=== PATIENT | female | born 1955 | race Caucasian/White ===

== ENCOUNTER 2020-05-23 12:06 | Outpatient (REF) | payer OTHER, SELFPAY ==
--- NOTE | ~2020-05-23 | XR_ITS ---
EXAMINATION: XR KNEE, LEFT XR KNEE, RIGHT CLINICAL INFORMATION: Knee pain COMPARISON: None TECHNIQUE: 4 views of each knee, including weightbearing AP and lateral views. FINDINGS: Left knee: No fracture or subluxation. Compartmental joint spaces are maintained. No joint effusion. The soft tissues are unremarkable. Right knee: No fracture or subluxation. Compartmental joint spaces are maintained. No joint effusion. The soft tissues are unremarkable. XR/XR knee RT 4V IMPRESSION: Unremarkable appearance of both knees.
--- NOTE | ~2020-05-23 | XR_ITS ---
EXAMINATION: XR KNEE, LEFT XR KNEE, RIGHT CLINICAL INFORMATION: Knee pain COMPARISON: None TECHNIQUE: 4 views of each knee, including weightbearing AP and lateral views. FINDINGS: Left knee: No fracture or subluxation. Compartmental joint spaces are maintained. No joint effusion. The soft tissues are unremarkable. Right knee: No fracture or subluxation. Compartmental joint spaces are maintained. No joint effusion. The soft tissues are unremarkable. XR/XR knee LT 4V IMPRESSION: Unremarkable appearance of both knees.
[2020-05-23 14:45] LABS: Alanine Aminotransferase 17 U/L (0-31); Albumin Level 4.4 g/dL (3.5-5.0); Alkaline Phosphatase 56 U/L (39-117); Anion Gap 12 (12-20); Aspartate Amino Transferase 20 U/L (5-31); Bilirubin Total 0.9 mg/dL (0.0-1.0); Blood Urea Nitrogen 14 mg/dL (9-16); Carbon Dioxide 29 mmol/L (22-29); Chloride 106 mmol/L (96-108); Cholesterol 253 mg/dL; Estimated Glomerular Filt Rate > 60; Glucose Fasting 84 mg/dL (60-99); HDL Cholesterol 101 mg/dL; LDL Cholesterol Calculated 130 mg/dl; Potassium 4.2 mmol/L (3.3-5.1); Sodium 143 mmol/L (135-145); Total Protein 6.9 g/dL (6.5-8.0); Triglycerides 114 mg/dL
[2020-05-23 15:04] LABS: TSH reflex Free T4 0.63 uIU/mL (0.32-4.0); Vitamin D 25-OH Total 5.3 ng/mL (>30)
== END 2020-05-23 12:07 | disposition home or self-care (01) ==
LOC: HO.HMGCX 12:06
PROVIDERS: PCP Nurse Practitioner Family; Visit Provider Nurse Practitioner Family
DX: Z00.00 Encounter for general adult medical examination without abnormal findings (principal); M25.561 Pain in right knee; M25.562 Pain in left knee; Z78.0 Asymptomatic menopausal state
CPT/HCPCS: 36415; 73564; 80053; 80061; 82306; 84443

== ENCOUNTER 2020-07-01 15:06 | Outpatient (REF) | payer OTHER, SELFPAY ==
[2020-07-01 16:40] LABS: Hematocrit 39.7 % (37-47); Hemoglobin 13.1 g/dl (12.0-16.0); Mean Corpuscular Hemoglobin 32.1 pg (27.0-33.0); Mean Corpuscular Volume 97.3 fL (80-98); Mean Platelet Volume 10.1 fL (9.4-12.3); Platelet Count 180 X10*3/uL (160-400); Red Blood Count 4.08 X10*6/uL (4.20-5.50); Red Cell Distribution Width 12.6 % (11.0-16.0); White Blood Count 5.4 X10*3/uL (4.8-10.8)
== END 2020-07-01 15:07 | disposition home or self-care (01) ==
LOC: HO.LAB 15:06
PROVIDERS: PCP Nurse Practitioner Family; Referring Provider Nurse Practitioner Family; Visit Provider Nurse Practitioner Family
DX: R19.7 Diarrhea, unspecified (principal)
CPT/HCPCS: 36415; 85027

== ENCOUNTER 2020-07-24 15:54 | Outpatient (REF) | payer OTHER, SELFPAY ==
--- NOTE | ~2020-07-24 | MM_ITS ---
EXAMINATION: MM SCREENING DIGITAL BREAST TOMOSYNTHESIS, BILATERAL CLINICAL INFORMATION: Screening. Asymptomatic. The lifetime risk of breast cancer based on the Tyrer-Cuzick Model is 5%. COMPARISON: Outside mammography: 08/01/2013, 07/26/2012, 07/21/2012 ([place]) TECHNIQUE: Digital breast tomosynthesis is performed in both the craniocaudal and mediolateral oblique views along with computer-aided detection (CAD). Synthesized 2D images are generated from the tomosynthesis. FINDINGS: The breasts are heterogeneously dense, which may obscure small masses (ACR BI-RADS breast composition Category c). Breast tissue composition borders on average fibroglandular. There are no significant masses, abnormal calcifications, or other abnormalities. The skin contours are smooth. No significant changes from outside exam. MM/MM tomosynthesis screening BI IMPRESSION: No mammographic evidence of malignancy. ASSESSMENT: BI-RADS 1: Negative RECOMMENDATION: Routine annual mammography screening. This patient's information was entered into a reminder system with a target due date for their next mammogram.
== END 2020-07-24 15:55 | disposition home or self-care (01) ==
LOC: HO.MAMMO 15:54
PROVIDERS: Visit Provider Nurse Practitioner Family
DX: Z12.31 Encounter for screening mammogram for malignant neoplasm of breast (principal)
CPT/HCPCS: 77063; 77067

== ENCOUNTER → 2020-07-29 14:48 | Outpatient (REF) | payer OTHER, SELFPAY ==
--- NOTE | 2020-07-29 14:51 | CA_ITS ---
Transthoracic Echocardiogram Patient (Last, First, Middle): Maile Snow S Gender: Female Date of : 1955 Age: 65 Procedure Date: 07/29/2020 Procedure Type: Transthoracic Echocardiogram Location: OP Height: 162.56 cm Weight: 62.6 kg BSA: 1.67 m2 Heart Rate: bpm BP: 170 / 50 mmHg Actuarial Consultant: DALE/PRADEEP Referring MD: Jorge Sanchez [facility] Central Office Mechanic: Ayaan Ramos MD Symptoms: R01.1 - Cardiac murmur, unspecified Study Quality: Good ECG Rhythm: Sinus Conclusions: - 1. Normal LV systolic function with grade 1 diastolic dysfunction 2. Mild calcification aortic valve with increased gradient across aortic valve without significant aortic stenosis 3. Normal RV systolic pressure 4. No pericardial effusion Findings Left Ventricle Normal left ventricular size, thickness, and systolic function. The visually estimated ejection fraction is between 65-70%. Spectral Doppler is indicative of an impaired relaxation filling pattern. E/E prime ratio is <8, consistent with normal filling pressures. Evidence suggests grade I (mild) diastolic dysfunction. Right Ventricle Normal right ventricular cavity size and systolic function. Atria Both atria are normal in size. There is a mobile atrial septum noted. There is no evidence of interatrial shunt. Aortic Valve There is mild calcification of the aortic valve. There is no aortic valve stenosis. The peak aortic gradient is 20 mmHg.The mean gradient is 8 mmHg. There is no aortic valve regurgitation. Mitral Valve Normal mitral valve structure and function. There is trace mitral valve regurgitation. There is no mitral valve stenosis. Pulmonic Valve The pulmonic valve was not well visualized. Tricuspid Valve Normal tricuspid valve structure. There is trace tricuspid valve regurgitation. The right ventricular systolic pressure is normal. The right ventricular systolic pressure is 28 mmHg. Normal right atrial pressure. There is no evidence of pulmonary hypertension. Great Vessels All visible segments of the aorta are normal in size. The pulmonary artery was not well visualized. Venous The inferior vena cava is normal in size and collapses greater than 50% with inspiration. Pericardium/Pleural There is no evidence of pericardial effusion. Prior Study Comparison No prior study available for comparison. Measurements 2D Linear Measurements IVSd: 0.81 0.6-0.9/0.6-1.0 cm LVIDd: 4.09 3.9-5.3/4.2-5.9 cm LVIDd Index: 2.45 2.4-3.2/2.2-3.1 cm/m2 LVIDs: 2.56 2.0-3.6 cm LVPWd: 0.83 0.7-1.1 cm Ao Root: 3.00 2.1-3.5 cm LA Diam: 3.00 2.7-3.8/3.0-4.0 cm LAIDs Index: 1.80 1.5-2.3 cm/m2 LV Mass: 123.68 67-162/88-224 g LV Mass Index: 74.06 43-95/49-115 g/m2 LVOT Diam: 1.90 3.0+(-)1.3 cm 2D Systolic Function EF 4C: 69.40 >55% EF 2C: 62.00 >55% EF BiP: 67.10 >55% Mitral Valve MV Pk E: 0.96 MV PK A: 1.05 MV Decel Time: 282.00 E/A: 0.90 E'Lateral: 10.80 E'Medial: 7.18 E/E' Med: 13.30 E/E' Lat: 8.80 PHT: 82.00 MVA PHT: 2.68 Decel Wilcox: 3.39 Aortic Valve AoV Pk Philippe: 2.26 AoV Mn Philippe: 1.28 AoV VTI: 0.45 AoV Pk Grad: 20.00 Aov Mn Grad: 8.00 MICKY Cont.VTI: 2.28 LVOT LVOT Pk Philippe: 1.73 LVOT Mn Philippe: 1.10 LVOT VTI: 0.36 LVOT Pk Grad: 12.00 LVOT Mn Grad: 6.00 LVOT Diam: 1.90 LVOT Area: 2.84 Diastolic Function MV Pk E: 0.96 MV Pk A: 1.05 E/A: 0.90 E'Medial: 7.18 E/E' Med: 13.30 E' Laterial: 10.80 E/E' Lat: 8.80 Tricuspid Valve TR Pk Philippe: 2.52 TR Pk Grad: 25.00 RA Press: 3.00 RVSP: 28.00 Great Vessels Aorta Ao Root-2D: 3.00 2.0-3.7 cm Ao Asc: 3.40 2.1-3.4 cm Ao Arch: 3.70 Updated in Other Vendor System with Status of Final Ayaan Ramos MD electronically signed on 07/29/2020 5:32:57 PM with status of Final
== END ==
LOC: HO.CARD 14:48
PROVIDERS: Visit Provider Nurse Practitioner Family
DX: R00.1 Bradycardia, unspecified (principal)
CPT/HCPCS: 93306

== ENCOUNTER → 2020-08-01 09:11 | Outpatient (BNVA) | payer OTHER, SELFPAY | PROVIDERS: PCP Nurse Practitioner Family; Visit Provider Internal Medicine Cardiovascular Disease | DX: R07.9 Chest pain, unspecified (principal); R01.1 Cardiac murmur, unspecified; I10 Essential (primary) hypertension; Z79.899 Other long term (current) drug therapy | CPT/HCPCS: 93005 ==

== ENCOUNTER → 2020-08-08 09:16 | Outpatient (REF) | payer OTHER, SELFPAY ==
--- NOTE | 2020-08-08 09:21 | CA_ITS ---
Acquisition Time: 2020-08-08 09:55:42 Total Exercise Time: 00:09:00 Test Indications: Chest Pain Medications: Protocol: ABDIRAHMAN Max HR: 134 BPM 85% of Pred: 157 BPM Max BP: 162/086 mmHG Max Work Load: 10.1 METS Exercise stress test with exercise 9 min of Abdirahman protocol, without anginal symptoms, with isolated PACs, with normotensive response to exercise, without EKG changes meeting criteria for ischemia. Test reviewed with Dr Eddy. Referred By: Eloy Villanueva Overread By: DEE ROSSI
== END ==
LOC: HO.CARD 09:16
PROVIDERS: Visit Provider Internal Medicine Cardiovascular Disease
DX: I10 Essential (primary) hypertension (principal)
CPT/HCPCS: 93017

== ENCOUNTER → 2020-10-02 13:36 | Outpatient (BNVA) | payer OTHER, SELFPAY | PROVIDERS: PCP Nurse Practitioner Family; Referring Provider Nurse Practitioner Family; Visit Provider Nurse Practitioner Family ==

== ENCOUNTER 2021-03-03 12:44 | Outpatient (REF) | payer OTHER, SELFPAY ==
[2021-03-03 13:15] LABS: Binax Now Covid-19 Ag Negative (Negative)
[2021-03-03 13:16] LABS: Binax Internal Control QC Valid
== END 2021-03-03 12:45 | disposition home or self-care (01) ==
LOC: HO.HMGCLDS 12:44
PROVIDERS: Visit Provider Internal Medicine
DX: Z20.822 Contact with and (suspected) exposure to COVID-19 (principal); J06.9 Acute upper respiratory infection, unspecified
CPT/HCPCS: 36415

== ENCOUNTER 2021-03-31 10:53 | Day surgery (SDC) | payer OTHER, SELFPAY ==
--- NOTE | 2021-03-28 12:18 | HO.ANESPROP2 ---
Documented by User: Sonam Hi NP 03/28/21 12:20 HPI - Anesthesia Eval Consult details Narrative: 66yo F for Colonoscopy PMFSH Active Problems Active Problems: All Active Problems (Updated 03/25/21 @ 13:33 by Gisela Little RN) Stress due to illness of family member (Acute) Screening for colon cancer (Acute) Screening for breast cancer (Acute) Physical exam (Acute) Postmenopausal (Acute) Bilateral knee pain (Acute) Systolic murmur (Acute) Dyslipidemia (Acute) Chest pain (Acute) Essential hypertension (Acute) Palpitations (Acute) Preop cardiovascular exam (Acute) Upper respiratory tract infection (Acute) Past Medical History Medical History (Updated 03/31/21 @ 11:07 by Lana Christy RN) Graves disease HTN (hypertension) Hyperlipidemia Murmur Palpitations Vitamin D deficiency Family History Family History Father Hypertension Diabetes Mother COPD (chronic obstructive pulmonary disease) Surgical History Surgical History (Updated 03/31/21 @ 11:06 by Lana Christy RN) History of hernia surgery Hx of abdominal surgery Social History Social History Household Members: Spouse Alcohol intake: current Alcohol intake frequency: a few times a month Patient Tobacco Use Status: Never used Tobacco Use of substances other than those prescribed or required for medical reasons: No Are you DNR?: No Advance Directives: No Advance Directives Information Provided: Yes Current occupational status: unemployed Meds Allergies Allergy/AdvReac Type Severity Reaction Status Date / Time No Known Allergies Allergy Verified 03/31/21 11:07 Home Medications Medication Instructions Recorded Confirmed Last Taken Type methylcellulose (laxative) 500 mg 500 mg PO DAILY PRN tab 03/03/21 03/25/21 Unknown History tablet (Citrucel) Exam Exam Date and Time: March 28, 2021 1218 Narrative Narrative: ECHO 07/2020 Conclusions: - 1. Normal LV systolic function with grade 1 diastolic? dysfunction? 2. Mild calcification aortic valve with increased gradient across aortic valve without significant aortic stenosis ? 3. Normal RV systolic pressure ? 4. No pericardial effusion ? ? ? EKG 07/2020 Normal sinus rhythm 78 beats per minute, normal ECG, QTC 449 milliseconds Stress 07/2020 Protocol: ACE ? Max HR: 134 BPM? 85% of? Pred: 157 BPM Max BP: 162/086 mmHG Max Work Load: 10.1 METS ? Exercise stress test with exercise 9 min of Ace protocol, without anginal ?symptoms, with isolated PACs, with normotensive response to exercise, without ?EKG changes meeting criteria for ischemia. Test reviewed with Dr Eddy. Assessment and Plan Assessment Anesthesia Assessment: Chart Reviewed Documented by User: Ila Hawkins MD 03/31/21 11:18 [facility] Past Medical History Medical History (Updated 03/31/21 @ 11:07 by Lana Christy RN) Graves disease HTN (hypertension) Hyperlipidemia Murmur Palpitations Vitamin D deficiency Family History Family History Father Hypertension Diabetes Mother COPD (chronic obstructive pulmonary disease) Family history of problems with anesthesia: No Surgical History Surgical History (Updated 03/31/21 @ 11:06 by Lana Christy RN) History of hernia surgery Hx of abdominal surgery History of Problems with Anesthesia: No Social History Social History Household Members: Spouse Alcohol intake: current Alcohol intake frequency: a few times a month Patient Tobacco Use Status: Never used Tobacco Use of substances other than those prescribed or required for medical reasons: No Are you DNR?: No Advance Directives: No Advance Directives Information Provided: Yes Current occupational status: unemployed Meds Allergies Allergy/AdvReac Type Severity Reaction Status Date / Time No Known Allergies Allergy Verified 03/31/21 11:07 Home Medications Medication Instructions Recorded Confirmed Last Taken Type methylcellulose (laxative) 500 mg 500 mg PO DAILY PRN tab 01/10/22 02/01/22 Unknown History tablet (Citrucel) Exam Airway Mallampati Class: II TM Dist: >3cm Neck ROM: Full Heart: rrr Lungs: cta Assessment and Plan Assessment Anesthesia Assessment: Anesthesia Plan Discussed and Chart Reviewed Final Anesthetic Review Family History of Problems with Anesthesia: No History of Problems with Anesthesia: No NPO: Yes ASA Class: II Final Preanesthetic Review: No Changes in Pt Med Stat, Meds/Allgs Chart Reviewed and Consent Obtained/Reviewed Patient Risk: Intermediate Procedure Risk: Intermediate Anesthetic Plan Anesthetic Plan: MAC: Disposition: Standard PACU
[2021-03-31 11:08] VITALS: BMI 23.0
--- NOTE | 2021-03-31 11:14 | MHC.SHP ---
Pre-Procedural Eval Section A Date of Service: 03/31/21 Section B Chief Complaint: diarrhea Relevant Family History (Specify if Yes): No Relevant Social History: None Present Medications: see Short Stay Collaborative assessment Medical History: Significant History (Graves disease HTN (hypertension) Hyperlipidemia Murmur Palpitations) History of Previous Operations: Relevant previous surgery/procedure and date(s) (History of hernia surgery Hx of abdominal surgery) Allergies: Allergies Allergy/AdvReac Type Severity Reaction Status Date / Time No Known Allergies Allergy Verified 03/31/21 11:07 Review of Systems Sugical H&P ROS: Negative: Constitution, Cardiovascular, Respiratory, Neurological, Psychiatric, Hem-Onc, Allergic/Immunologic, Gastrointestinal, Genitourinary, Musculoskeletal, Integumentary, Endocrine and Eyes/Ears/Nose/Throat Exam Surgical H&P Exam: Normal: HEENT, Normal: Heart, Normal: Lungs, Normal: Extremities, Normal: Abdomen, Normal: Skin and Normal: Neurological Plan Diagnosis/Plan: Unchanged I have reviewed the history and physical and performed a pertinent physical examination on my patient. No changes have occurred unless specified.
[2021-03-31 11:19] VITALS: BP 142/75; PULSE 60; RESP 16; TEMP 36.6; O2SAT 99
[2021-03-31] MEDS: Lactated Ringers 1,000 ML 100 ML IVCONT (11:36)
--- NOTE | 2021-03-31 12:03 | P.BOP_ITS ---
Brief Operative Note Date of Service: 03/31/21 Pre-op diagnosis: chronic diarrhea Post-op diagnosis: same Procedure: see op note Surgeon: Lio Celestin MD Anesthesia: MAC Was an Gang Investigator used for this Procedure?: No Estimated blood loss (mL): 0 Condition: stable Disposition: PACU
--- NOTE | 2021-03-31 12:03 | W.PM.OPN ---
Operative Note Operative Note Date of Service: 03/31/21 Narrative: Operative Information Procedure Description: Colonoscopy COLONOSCOPY Instrument: Olympus variable stiffness pediatric scope 190L Colonoscopy Monitoring: Vital signs and clinical assessment, continuous EKG monitoring, Pulse oximetry, Carbon Dioxide monitoring and blood pressure monitoring were done throughout the procedure. Colon withdrawal time was 19 minutes. Procedure: The patient was placed in the left lateral decubitis position and pre-procedure medications were administered. After a digital rectal examination of the ano-rectum, the video colonoscope was inserted into the rectum and advanced through the colon to the cecum/TI. The colonoscope was slowly withdrawn in a retrograde panoramic fashion and the colon mucosa was carefully examined including a retroflexed view of the rectum. Findings and interventions are described below. Procedure Difficulty: easy Findings: Terminal Ileum-normal, bx taken random colon bx taken to r/o microscopic colitis Cecum: 12-14 mm sessile polyp raised with orise and then removed with cold snare, x 1 clip applied for hemostasis Ascending Colon: x 2 sessile polyps, one removed with forceps measured 7-8 mm and the other similar size removed with cold snare Transverse Colon -normal Descending Colon:normal Sigmoid Colon: 8-10 mm sessile polyp removed with cold snare Rectum: Retroflexion with small internal hemorrhoids, grade I Anorectum - normal Colon preparation: [place] Bowel Preparation Scale Right colon; 2 Transverse colon: 2 Left colon; 2 (0 = Unprepared colon segment with mucosa not seen due to solid stool that cannot be cleared. 1 = Portion of mucosa of the colon segment seen, but other areas of the colon segment not well seen due to staining, residual stool and/or opaque liquid. 2 = Minor amount of residual staining, small fragments of stool and/or opaque liquid, but mucosa of colon segment seen well. 3 = Entire mucosa of colon segment seen well with no residual staining, small fragments of stool or opaque liquid) Impression and Post Procedure Diagnosis: polyps internal hemorrhoids Plan: High fiber diet leaflet Avoid straining at stool, epsom salts and sitz bath, anusol supps or cream Repeat Colonoscopy in 2-3 years or earlier if clinically indicated Above findings were reviewed with the patient and relevant handouts were provided if indicated.
[2021-03-31 12:58] VITALS: BP 112/71; PULSE 62; RESP 16; TEMP 36.7; O2SAT 99
[2021-03-31 13:13] VITALS: BP 147/65; PULSE 54; RESP 18; TEMP 37; O2SAT 97
== END 2021-03-31 13:47 ==
LOC: HO.SSS 10:53
PROVIDERS: PCP Internal Medicine; Visit Provider Internal Medicine Gastroenterology
PROC: 0DJD8ZZ Inspection of Lower Intestinal Tract, Via Natural or Artificial Opening Endoscopic (ICD-10-PCS; CPT 45378; principal; 2021-03-31 12:00)
DX: Z12.11 Encounter for screening for malignant neoplasm of colon (principal); R19.7 Diarrhea, unspecified; D12.0 Benign neoplasm of cecum; D12.2 Benign neoplasm of ascending colon; D12.5 Benign neoplasm of sigmoid colon; K64.0 First degree hemorrhoids; E05.00 Thyrotoxicosis with diffuse goiter without thyrotoxic crisis or storm; I10 Essential (primary) hypertension; R01.1 Cardiac murmur, unspecified; R00.2 Palpitations; E55.9 Vitamin D deficiency, unspecified; Z79.899 Other long term (current) drug therapy
CPT/HCPCS: 45385; 45380; 45381; 88305

== ENCOUNTER → 2021-04-03 13:24 | Outpatient (BNVA) | payer OTHER, SELFPAY | PROVIDERS: PCP Nurse Practitioner Family; Referring Provider Nurse Practitioner Family; Visit Provider Internal Medicine Cardiovascular Disease ==

== ENCOUNTER → 2021-04-24 14:52 | Outpatient (BNVA) | payer OTHER, SELFPAY | PROVIDERS: PCP Nurse Practitioner Family; Referring Provider Nurse Practitioner Family; Visit Provider Internal Medicine Cardiovascular Disease ==

== ENCOUNTER → 2021-04-25 15:03 | Outpatient (BNVA) | payer OTHER, SELFPAY | PROVIDERS: PCP Nurse Practitioner Family; Visit Provider Nurse Practitioner Family ==

== ENCOUNTER 2021-06-27 08:56 | Outpatient (REF) | payer OTHER, SELFPAY ==
--- NOTE | ~2021-06-27 | MM_ITS ---
EXAMINATION: BONE DENSITOMETRY CLINICAL INDICATION: Asymptomatic menopausal state. COMPARISON: None (current study represents initial baseline exam). TECHNIQUE: Using a Fighters DXA System (software version: 13.1) manufactured by [employer], dual-energy x-ray absorptiometry was performed of the lumbar spine and left hip. The images are of good technical quality. Summary results are attached. FINDINGS: AP SPINE L1-L4: BMD 1.154 g/cm2, Z-score 1.5, T-score -0.2, normal. LEFT FEMUR, NECK: BMD 0.628 g/cm2, Z-score -1.4, T-score -2.9, osteoporosis. LEFT FEMUR, TOTAL: BMD 0.733 g/cm2, Z-score -0.9, T-score -2.2, osteopenia. IDENTIFIED RISK FACTORS: Secondary osteoporosis, low calcium intake, menopause. HISTORY OF FRACTURE: None listed. MEDICATIONS: Vitamin D. MM/XR DEXA axial skeleton IMPRESSION: 1. DIAGNOSIS: Osteoporosis based on the lowest T-score value of -2.9 in the femoral neck applying World Health Organization criteria. 2. 10-YEAR FRACTURE RISK PREDICTION, FRAX: According to the guidelines, FRAX calculation should only be performed on patients in the osteopenia bone density category. Therefore, FRAX was not performed on this patient. 3. Treatment Recommendations: NOF guidelines recommend consideration for treatment in postmenopausal women and men age 50 and older presenting with the following: -A hip or vertebral (clinical or morphometric) fracture. -T-score less than or equal to -2.5 at the femoral neck or spine after appropriate evaluation to exclude secondary causes. -Low bone mass at the hip or spine and a 10-year fracture probability by FRAX of greater than or equal to 3% for hip fracture or greater than or equal to 20% for major osteoporotic fracture based on the [place] adapted WHO algorithm. 4. Other Recommendations: All treatment decisions require clinical judgment and consideration of individual patient factors, including patient preferences, comorbidities, previous drug use, risk factors not captured in the FRAX model (e.g. frailty, falls, vitamin D deficiency, increased bone turnover, interval significant decline in bone density) and possible under or overestimation of fracture risk by FRAX. Additional medical evaluation for secondary cause of low bone mineral density may be appropriate. FUTURE SCAN RECOMMENDATION: People with diagnosed cases of osteoporosis or at high risk for fracture should have regular bone mineral density tests. For patients eligible for Medicare, routine testing is allowed once every 2 years. The testing frequency can be increased to one year for patients who have rapidly progressing disease, those who are receiving or discontinuing medical therapy to restore bone mass, or have additional risk factors.
== END 2021-06-27 08:57 | disposition home or self-care (01) ==
LOC: HO.MAMMO 08:56
PROVIDERS: PCP Nurse Practitioner Family; Visit Provider Nurse Practitioner Family
DX: Z13.820 Encounter for screening for osteoporosis (principal); Z78.0 Asymptomatic menopausal state
CPT/HCPCS: 77080

== ENCOUNTER → 2021-07-07 14:29 | Outpatient (BNVA) | payer OTHER, SELFPAY | PROVIDERS: PCP Nurse Practitioner Family; Referring Provider Nurse Practitioner Family; Visit Provider Internal Medicine Cardiovascular Disease | DX: I10 Essential (primary) hypertension (principal) | CPT/HCPCS: 93005 ==

== ENCOUNTER 2021-08-04 08:46 | Outpatient (REF) | payer OTHER, SELFPAY ==
--- NOTE | ~2021-08-04 | MM_ITS ---
EXAMINATION: MM SCREENING DIGITAL BREAST TOMOSYNTHESIS, BILATERAL CLINICAL INFORMATION: Screening. Asymptomatic. The lifetime risk of breast cancer based on the Tyrer-Cuzick Model is 5%. COMPARISON: Mammography: 07/24/2020; outside mammography 08/01/2013 ([place]) TECHNIQUE: Digital breast tomosynthesis is performed in both the craniocaudal and mediolateral oblique views along with computer-aided detection (CAD). Synthesized 2D images are generated from the tomosynthesis. FINDINGS: There are scattered areas of fibroglandular density (ACR BI-RADS breast composition Category b). Breast tissue composition borders on heterogeneously dense on the right. Parenchymal pattern is similar to prior studies. There is no developing density or architectural abnormality, significant mass, or abnormal calcifications. The axilla and skin contours are unremarkable. MM/MM tomosynthesis screening BI IMPRESSION: No mammographic evidence of malignancy. ASSESSMENT: BI-RADS 1: Negative RECOMMENDATION: Routine annual mammography screening. This patient's information was entered into a reminder system with a target due date for their next mammogram.
== END 2021-08-04 08:47 | disposition home or self-care (01) ==
LOC: HO.MAMMO 08:46
PROVIDERS: PCP Nurse Practitioner Family; Visit Provider Nurse Practitioner Family
DX: Z12.31 Encounter for screening mammogram for malignant neoplasm of breast (principal)
CPT/HCPCS: 77063; 77067

== ENCOUNTER 2021-10-31 15:03 | Outpatient (REF) | payer OTHER, SELFPAY ==
[2021-10-31 16:23] LABS: TSH reflex Free T4 0.51 uIU/mL (0.32-4.0)
[2021-10-31 16:36] LABS: Folate 5.7 ng/mL (> or = 4.0); Vitamin B12 171 pg/mL (200-900)
[2021-11-06 11:52] LABS: Vitamin D 25-OH, D2 <4 ng/mL; Vitamin D 25-OH, D3 39 ng/mL; Vitamin D 25-OH, Total 39 ng/mL (30-100)
== END 2021-10-31 15:04 | disposition home or self-care (01) ==
LOC: HO.LAB 15:03
PROVIDERS: PCP Nurse Practitioner Family; Visit Provider Nurse Practitioner Family
DX: E05.00 Thyrotoxicosis with diffuse goiter without thyrotoxic crisis or storm (principal); E55.9 Vitamin D deficiency, unspecified; R19.7 Diarrhea, unspecified
CPT/HCPCS: 36415; 82306; 82607; 82746; 84443

== ENCOUNTER 2021-11-14 10:43 | Outpatient (REF) | payer OTHER, SELFPAY ==
[2021-11-14 13:55] LABS: Alanine Aminotransferase 15 U/L (0-31); Albumin Level 4.6 g/dL (3.5-5.0); Alkaline Phosphatase 55 U/L (39-117); Anion Gap 18 (12-20); Aspartate Amino Transferase 23 U/L (5-31); Bilirubin Total 0.9 mg/dL (0.0-1.0); Blood Urea Nitrogen 16 mg/dL (9-16); Calcium 10.2 mg/dL (8.4-10.2); Carbon Dioxide 27 mmol/L (22-29); Chloride 101 mmol/L (96-108); Estimated Glomerular Filt Rate 60; Glucose Random 83 mg/dL (60-115); Phosphorus 4.2 mg/dL (2.7-4.5); Potassium 4.7 mmol/L (3.3-5.1); Sodium 141 mmol/L (135-145); Total Protein 7.2 g/dL (6.5-8.0)
[2021-11-14 14:19] LABS: Free T4 (Free Thyroxine) 1.06 ng/dL (0.71-1.85); Thyroid Stimulating Hormone 0.49 uIU/mL (0.32-4.0); Vitamin D 25-OH Total 34.6 ng/mL (>30)
[2021-11-15 23:32] LABS: Triiodothyronine T3 Total 85 ng/dL (76-181)
[2021-11-17 17:26] LABS: PTHI 43 pg/mL (16-77)
[2021-11-17 21:07] LABS: Prot Elec - Albumin 4.5 g/dL (3.8-4.8); Prot Elec - Alpha1 0.3 g/dL (0.2-0.3); Prot Elec - Alpha2 0.6 g/dL (0.5-0.9); Prot Elec - Beta 1 0.5 g/dL (0.4-0.6); Prot Elec - Beta 2 0.3 g/dL (0.2-0.5); Prot Elec - Gamma 0.8 g/dL (0.8-1.7); Prot Elec - Total Protein 6.9 g/dL (6.1-8.1)
[2021-11-18 17:36] LABS: Calcium, Ionized 5.1 mg/dL (4.8-5.6)
[2021-11-18 23:33] LABS: Alkaline Phosphatase Bone 8.7 mcg/L (5.6-29.0)
[2021-11-19 14:37] LABS: Thyroid Stimulating Immunoglob <89 % baseline (<140)
[2021-11-19 16:42] LABS: Thyrotropin Receptor Antibody <1.00 IU/L (<=2.00)
== END 2021-11-14 10:44 | disposition home or self-care (01) ==
LOC: HO.10HDL 10:43
PROVIDERS: Visit Provider Internal Medicine
DX: M81.0 Age-related osteoporosis without current pathological fracture (principal); E55.9 Vitamin D deficiency, unspecified; Z86.39 Personal history of other endocrine, nutritional and metabolic disease
CPT/HCPCS: 36415; 80053; 82306; 82330; 83520; 83970; 84075; 84100; 84165; 84439; 84443; 84445; 84480

== ENCOUNTER 2021-12-05 09:59 | Outpatient (REF) | payer OTHER, SELFPAY ==
--- NOTE | ~2021-12-05 | US_ITS ---
EXAMINATION: US THYROID CLINICAL INFORMATION: Personal history of other endocrine, nutritional and metabolic disorder. COMPARISON: None TECHNIQUE: Linear transducer grayscale and color Doppler examination with attention to the region of the thyroid. FINDINGS: SIZE: Measurements of the thyroid lobes and nodules are given in sagittal, anteroposterior and transverse dimensions respectively. Right Thyroid Lobe: 4.6 x 1.3 x 1.8 cm, volume 5.6 mL. Parenchyma: The gland echotexture is homogeneous. Thyroid vascularity is increased. Left Thyroid Lobe: 5.1 x 1.1 x 1.7 cm, volume 5.0 mL. Parenchyma: The gland echotexture is homogeneous. Thyroid vascularity is increased. Isthmus: 0.6 cm in maximum AP dimension. Estimated total number of nodules greater than or equal to 1 cm: 0. 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 Location: Right midpole. Size: 0.3 x 0.4 x 0.2 cm, volume 0.01 mL. Nodule characteristics: Composition: Spongiform (0). ACR TI-RADS total points: 0 ACR TI-RADS category: 1 2. Location: Left lower pole. Size: 0.6 x 0.4 x 0.6 cm, volume 0.07 mL. Nodule characteristics: Composition: Spongiform (0). ACR TI-RADS total points: 0 ACR TI-RADS category: 1 3. Location: Left upper pole. Size: 0.9 x 0.6 x 0.8 cm, volume 0.25 mL. Nodule characteristics: Composition: Solid/almost completely solid (2). Echogenicity: Isoechoic (1). Shape: Not taller than wide (0). Margins: Ill-defined (0). Echogenic Foci: None (0). ACR TI-RADS total points: 3 ACR TI-RADS category: 3 NODES: No lymphadenopathy is seen in the tissue surrounding the thyroid gland. US/US thyroid IMPRESSION: Small subcentimeter nodules nonsuspicious.. Mild hypervascular nonenlarged thyroid lobes ACR TI-RADS RECOMMENDATION REFERENCE: Ultrasound-guided fine-needle aspiration, followup ultrasound, no further follow up. * TR1 (0 point) and TR 2 (2 points): No FNA or follow up. * TR3 (3 points): FNA if more than or equal to 2.5 cm in maximum dimension, followup ultrasound in 1, 3 and 5 years if 1.5 to 2.4 cm in maximum dimension. * TR4 (4-6 points): FNA if more than or equal to 1.5 cm in maximum dimension, followup ultrasound in 1, 2, 3 and 5 years if 1 to 1.4 cm in maximum dimension. * TR5 (more than or equal to 7 points): FNA if more than or equal to 1 cm in maximum dimension, followup ultrasound every year for 5 years if 0.5 to 0.9 cm in maximum dimension. * TR3, TR4 or TR5 nodules that are below the size threshold for followup receive no follow up.
== END 2021-12-05 10:00 | disposition home or self-care (01) ==
LOC: HO.HMGCX 09:59
PROVIDERS: PCP Nurse Practitioner Family; Visit Provider Internal Medicine
DX: Z86.39 Personal history of other endocrine, nutritional and metabolic disease (principal)
CPT/HCPCS: 76536

== ENCOUNTER 2022-01-29 11:52 | Outpatient (REF) | payer OTHER, SELFPAY ==
[2022-01-29 15:00] LABS: Creatinine, mg/dL 98.58
[2022-01-29 18:12] LABS: Creatinine, 24Hr Urine 0.7 G/Day (1.0-2.0); Total Volume 24 Hour Urine 675 mL
[2022-01-31 17:33] LABS: Calcium, 24 Hr Urine 34 mg/24 h; Calcium/Creatinine Ratio 53 mg/g creat (30-275); Creatinine 24Hr Urine 0.63 g/24 h (0.50-2.15)
[2022-02-08 04:13] LABS: N-Telopeptide 36 (see note); NTXCreaRU 50 mg/dL (20-275)
== END 2022-01-29 11:53 | disposition home or self-care (01) ==
LOC: HO.10HDLNP 11:52
PROVIDERS: Visit Provider Internal Medicine
DX: M81.0 Age-related osteoporosis without current pathological fracture (principal)
CPT/HCPCS: 82340; 82523; 82570

== ENCOUNTER → 2022-07-13 14:26 | Outpatient (BNVA) | payer MEDICARE, SELFPAY | PROVIDERS: PCP Nurse Practitioner Family; Referring Provider Nurse Practitioner Family; Visit Provider Internal Medicine Cardiovascular Disease | DX: R00.2 Palpitations (principal); I10 Essential (primary) hypertension; Z79.899 Other long term (current) drug therapy | CPT/HCPCS: 93005; 99212 ==

== ENCOUNTER 2022-07-27 13:47 | Outpatient (REF) | payer MEDICARE, SELFPAY ==
[2022-07-27 16:09] LABS: Alanine Aminotransferase 12 U/L (0-31); Albumin Level 4.3 g/dL (3.5-5.0); Alkaline Phosphatase 59 U/L (39-117); Anion Gap 16 (12-20); Aspartate Amino Transferase 23 U/L (5-31); Bilirubin Total 0.6 mg/dL (0.0-1.0); Blood Urea Nitrogen 11 mg/dL (9-16); Calcium 9.8 mg/dL (8.4-10.2); Carbon Dioxide 22 mmol/L (22-29); Chloride 109 mmol/L (96-108); Estimated Glomerular Filt Rate > 60; Glucose Random 79 mg/dL (60-115); Phosphorus 3.2 mg/dL (2.7-4.5); Potassium 4.5 mmol/L (3.3-5.1); Sodium 142 mmol/L (135-145); Total Protein 6.8 g/dL (6.5-8.0)
[2022-07-27 16:27] LABS: Free T4 (Free Thyroxine) 1.11 ng/dL (0.71-1.85); Thyroid Stimulating Hormone 0.51 uIU/mL (0.32-4.0); Vitamin D 25-OH Total 36.2 ng/mL (>30)
[2022-07-28 18:28] LABS: Calcium (PTHI) 9.9 mg/dL (8.6-10.4); PTHI 36 pg/mL (16-77)
== END 2022-07-27 13:48 | disposition home or self-care (01) ==
LOC: HO.LAB 13:47
PROVIDERS: PCP Nurse Practitioner Family; Visit Provider Internal Medicine
DX: M81.0 Age-related osteoporosis without current pathological fracture (principal); E55.9 Vitamin D deficiency, unspecified; Z86.39 Personal history of other endocrine, nutritional and metabolic disease
CPT/HCPCS: 36415; 80053; 82306; 83970; 84100; 84439; 84443; 99212

== ENCOUNTER 2022-08-07 15:33 | Outpatient (REF) | payer MEDICARE, SELFPAY ==
[2022-08-07 15:42] LABS: Appearance Urine Clear; Color Urine Yellow; Glucose Urine UA Negative (Negative); Leukocyte Esterase Urine Moderate (2+) (Negative); Nitrite Urine Negative (Negative); PH 5.5 (5.0-9.0); UMIC TRIGGER UACC YES; Urine Blood Small (1+) (Negative); Urine Ketones Negative (Negative); Urine Protein Negative (Neg-Trace)
[2022-08-07 15:54] LABS: Bacteria Urine 1+ (None Seen); Hyaline Casts Urine 0-2 /LPF (0-2); UACC Culture Trigger YES
== END 2022-08-07 15:34 | disposition home or self-care (01) ==
LOC: HO.LNP 15:33
PROVIDERS: Visit Provider Nurse Practitioner Family
DX: Z00.00 Encounter for general adult medical examination without abnormal findings (principal); R82.90 Unspecified abnormal findings in urine
CPT/HCPCS: 81001; 87086

== ENCOUNTER 2022-08-10 08:11 | Outpatient (REF) | payer MEDICARE, SELFPAY ==
--- NOTE | ~2022-08-10 | MM_ITS ---
EXAMINATION: MM SCREENING DIGITAL BREAST TOMOSYNTHESIS, BILATERAL CLINICAL INFORMATION: Screening. Asymptomatic. The lifetime risk of breast cancer based on the Tyrer-Cuzick Model is 5%. COMPARISON: Mammography: 08/04/2021, 07/24/2020, outside mammography 08/01/2013 ([employer]). TECHNIQUE: Digital breast tomosynthesis is performed in both the craniocaudal and mediolateral oblique views along with computer-aided detection (CAD). Synthesized 2D images are generated from the tomosynthesis. Additional exaggerated left CC view is provided. FINDINGS: The breasts are heterogeneously dense, which may obscure small masses (ACR BI-RADS breast composition Category c). Breast tissue composition borders on average fibroglandular. Parenchymal pattern is similar to prior studies. There are no significant masses, abnormal calcifications, or other abnormalities. No developing density or architectural abnormality. The axilla and skin contours are unremarkable. MM/MM tomosynthesis screening BI IMPRESSION: No mammographic evidence of malignancy. ASSESSMENT: BI-RADS 1: Negative RECOMMENDATION: Routine annual mammography screening. This patient's information was entered into a reminder system with a target due date for their next mammogram.
== END 2022-08-10 08:12 | disposition home or self-care (01) ==
LOC: HO.MAMMO 08:11
PROVIDERS: PCP Nurse Practitioner Family; Visit Provider Nurse Practitioner Family
DX: Z12.31 Encounter for screening mammogram for malignant neoplasm of breast (principal)
CPT/HCPCS: 77063; 77067

== ENCOUNTER → 2022-10-15 14:16 | Outpatient (BNVA) | payer MEDICARE, SELFPAY | PROVIDERS: PCP Nurse Practitioner Family; Visit Provider Internal Medicine ==

== ENCOUNTER 2022-11-13 11:57 | Outpatient (AMB) | payer MEDICARE, SELFPAY ==
--- NOTE | 2022-11-13 12:16 | MHC.OFFVIS ---
Intake Vital Signs 11/13/22 12:18 Height 5 ft 4 in Weight 126 lb BMI 21.6 BP 148/71 H Blood Pressure Location Lt brachial Position Sitting Pulse 66 Intake Visit Reasons: 1 year follow up Intake Note: Patient yearly follow up for Diarrhea. Patient cc: diarrhea on and off, denies any other GI concern or issues. Second Cook And Baker Required: No Accompanied by: Self / Same As Patient Allergies No Known Allergies Allergy (Verified 11/19/22 10:10) HPI 1 year follow up HPI Details LAST VISIT Diarrhea Occasional diarrhea. Patient was encouraged to start fiber therapy. This will help her bulk the stools. Patient was also encouraged to stick to FODMAP diet recommendations. IBS (irritable bowel syndrome) Occasional postprandial abdominal cramping. Patient will loose stools and then occasionally he will be constipated. I will send a script for Citrucel. FODMAP diet discussed with patient. Graves disease Patient reports that she was diagnosed with Graves disease 10 years ago requesting to going see an electrician locomotive or somebody who can check her thyroid. I do not see any ultrasound available. Thyroid levels only TSH available and it was normal. No other studies done. Will refer to endocrinology Plan Orders Orders Vitamin B12 and Folate 10/31/21 R19.7 TSH reflex Free T4 10/31/21 E05.00, R19.7 Vitamin D 25-OH (D2 and D3) 10/31/21 E55.9 Referrals Endocrinology Referral E05.00 Medications New methylcellulose (laxative) (Citrucel) take it with full glass of water 500 mg PO DAILY 90 tabs 2RF K59.00 calcium carbonate (Calcium) 600 mg PO DAILY 90 tabs 2RF TODAY'S VISIT: Patient is here today for follow-up. Patient reports since last time I have seen her she has been doing better. Patient reports of occasional postprandial abdominal bloating and loose stools. Patient denies any abdominal pain or cramping. Occasional dyspepsia without dysphagia odynophagia. Patient started taking Fosamax weekly for osteoporosis. Seen by Endocrinology for Graves disease and after osteoporosis. Patient denies any melena, hematochezia, unintentional weight loss or ribbon like stools. Denies any nausea vomiting. Reports to be feeling well otherwise. Patient has colonoscopy in March of 2021 that showed tubulovillous adenoma and recommendation was made for patient to return in 2-3 years. [facility] Medical History (Updated 11/19/22 @ 10:48 by CAROLINE Rivera) Vitamin D deficiency Osteoporosis History of Graves' disease Tubulovillous adenoma Vitamin D deficiency Palpitations Hyperlipidemia Murmur HTN (hypertension) Graves disease Surgical History Hx of colonoscopy History of hernia surgery Hx of abdominal surgery Family History Father Hypertension Diabetes Mother COPD (chronic obstructive pulmonary disease) Social History Household Members: Spouse Housing: [facility] Alcohol intake: current Alcohol intake frequency: a few times a week Alcohol type: beer Patient Tobacco Use Status: Never used Tobacco e-Cigarette/Vaping Use: Never Used Second Hand Smoke Exposure: No service: No Current occupational status: retired Cognitive needs: No Hearing needs: No Vision needs: Yes Review of Systems Const Denies weight gain and Denies weight loss ENT Reports no additional complaints, Denies dysphagia and Denies odynophagia Card Reports no additional complaints Resp Reports no additional complaints GI Denies abdominal pain, Denies belching, Denies melena, Denies bloating, Denies dysphagia, Denies excessive flatus, Denies dyspepsia, Denies heartburn, Denies diarrhea, Reports loose stools, Denies nausea, Denies odynophagia and Denies vomiting Reports no additional complaints Musc Reports no additional complaints Neuro Reports no additional complaints Psych Reports no additional complaints Endo Reports no additional complaints Physical Exam Vital Signs: Last Vital Signs Pulse 66 11/13/22 12:18 BP 148/71 H 11/13/22 12:18 BMI result Body Mass Index 21.6 Const General: healthy appearing, no acute distress and well developed Nutritional Appearance: well nourished Orientation/consciousness: patient oriented x3 HEENT Head: Yes normal to inspection, Yes normocephalic and Yes atraumatic Face and sinus: Yes normal facial exam Mouth: Normal oral and palatal mucosa present Throat: Yes posterior oropharynx normal, Yes tonsils normal and Yes uvula midline Eyes General: appearance normal, both eyes and all related structures Neck Neck: Yes normal visual inspection, Yes full ROM and Yes trachea midline Thyroid: Thyroid normal Resp Effort & Inspection: normal respiratory effort, able to speak in complete sentences, no tracheal deviation and symmetric chest movement Auscultation: clear to auscultation bilaterally Cardio Rate: regular rate Heart sounds: S1 normal heart sound present and S2 normal heart sound present GI Inspection: Yes normal to inspection and No distended Palpation (GI): Soft to palpation, not firm, nontender and No hepatosplenomegaly present Auscultation: normal bowel sounds General: Yes no CVA tenderness Back/Spine/Pelvis Back: no CVA tenderness Skin General skin exam: elasticity normal, turgor normal and dry skin Neuro General: patient oriented x3 Psych Appearance: grossly normal Mental Status: mental status grossly normal Speech and movement: Normal speech and movement present Assessment & Plan Assessment & Plan (1) Diarrhea: Code(s): R19.7 - Diarrhea, unspecified Qualifiers: Diarrhea type: functional diarrhea Qualified Code(s): K59.1 - Functional diarrhea (2) IBS (irritable bowel syndrome): Code(s): K58.9 - Irritable bowel syndrome without diarrhea Qualifiers: Irritable bowel syndrome type: with both diarrhea and constipation Qualified Code(s): K58.2 - Mixed irritable bowel syndrome Plan Patient can continue taking over the come her fiber. Patient was also encouraged fluid intake. Avoiding dietary triggers and like that snacking. I will see patient will on year to discuss colonoscopy. Patient will call our office sooner if she will have a GI concerning symptoms. She is agreeable to this plan and verbalizes understanding of instructions. She was given the opportunity to ask questions and all questions answered. Thank you for allowing me to participate in her care Coding Level of Care Code Est Pt Level 3 (39528) Diagnoses Functional diarrhea K59.1 Diarrhea type: functional diarrhea Irritable bowel syndrome with both constipation and diarrhea K58.2 Irritable bowel syndrome type: with both diarrhea and constipation Time Spent (min) 25 Comment 15 minutes spent with patient and additional 10 minutes spent reviewing her records
[2022-11-13 12:18] VITALS: BP 148/71; PULSE 66; BMI 21.6
== END 2022-11-13 12:49 | disposition home or self-care (01) ==
PROVIDERS: PCP Nurse Practitioner Family; Visit Provider Nurse Practitioner Family
DX: K59.1 Functional diarrhea (principal); K58.2 Mixed irritable bowel syndrome
CPT/HCPCS: 99213

== ENCOUNTER → 2022-11-13 11:57 | Outpatient (BNVA) | payer MEDICARE, SELFPAY | PROVIDERS: PCP Nurse Practitioner Family; Visit Provider Nurse Practitioner Family | DX: K58.2 Mixed irritable bowel syndrome (principal); K59.1 Functional diarrhea | CPT/HCPCS: 99212 ==

== ENCOUNTER 2022-11-19 09:52 | Outpatient (AMB) | payer MEDICARE, SELFPAY ==
--- NOTE | 2022-11-19 10:08 | A.OFFPC_ITS ---
Vital Signs 11/19/22 10:09 Height 5 ft 3 in Weight 129 lb 4 oz BMI 22.9 BP 140/78 H Blood Pressure Location Lt brachial Position Sitting Pulse 57 Pulse Source Pulse Oximeter Pulse Oximetry (%) 100 Oxygen Delivery Method Room Air Intake Visit Reasons: 3 Month follow up HTN Allergies No Known Allergies Allergy (Verified 11/19/22 10:10) Tobacco use date assessed: 11/19/22 Fall risk assessment: 1 Fall in past year Last assessed Fall Risk: 11/19/22 Dental Screening Dental Screen Date: 11/19/22 Did you have a dental visit in the last 12 months?: Yes Did you have a dental problem in the last 6 months where you did not have access to dental care?: No Was dental information given to patient?: Patient has dentist HPI 3 Month follow up HTN HPI Details HTN: forgets her HTN med intermittently. Patient denies any current shortness of breath, chest pain, headache, dizziness. She will start to take her blood pressure more at home and call me if she sustains above 140/90. 2. Patient reports intermittent pins and needles starting at her right upper ext remity going down to her thumb. She does report some popping/clicking in her cervical neck, with minimal discomfort. We will start with an x-ray [facility] Medical History (Updated 11/19/22 @ 10:48 by CAROLINE Rivera) Vitamin D deficiency Osteoporosis History of Graves' disease Tubulovillous adenoma Vitamin D deficiency Palpitations Hyperlipidemia Murmur HTN (hypertension) Graves disease Surgical History Hx of colonoscopy History of hernia surgery Hx of abdominal surgery Family History Father Hypertension Diabetes Mother COPD (chronic obstructive pulmonary disease) Social History Household Members: Spouse Housing: Condominium Alcohol intake: current Alcohol intake frequency: a few times a week Alcohol type: beer Patient Tobacco Use Status: Never used Tobacco e-Cigarette/Vaping Use: Never Used Second Hand Smoke Exposure: No service: No Current occupational status: retired Cognitive needs: No Hearing needs: No Vision needs: Yes Questionnaire Thrive Questionnaire Date Thrive assessed: 05/14/22 GLORIA-7 AMB Questionnaire GLORIA-7 Date GLORIA - 7 assessed: 05/14/22 Source: Developed by Drs. Roscoe Hussein, Collette Alex, Gary Alcantara and colleagues, with an educational haley from [employer]. Physical exam (Primary Care) Vital Signs: Last Vital Signs Pulse 57 11/19/22 10:09 BP 140/78 H 11/19/22 10:09 Pulse Ox 100 11/19/22 10:09 Oxygen Delivery Method Room Air 11/19/22 10:09 BMI result Body Mass Index 22.9 Tobacco/Smoking Status: Tobacco use Status Tobacco use date assessed 11/19/22 11/19/22 10:12 Patient Tobacco Use Status Never used Tobacco 11/19/22 10:12 e-Cigarette/Vaping Use Never Used 11/19/22 10:12 Thrive Assessment: Date of Thrive Assessment Date Thrive assessed 05/14/22 11/19/22 10:12 Const General: cooperative, healthy appearing, comfortable and no acute distress Resp Effort & Inspection: normal respiratory effort Auscultation: clear to auscultation bilaterally Cardio Rate: regular rate Rhythm: regular rhythm Heart sounds: S1 normal heart sound present, S2 normal heart sound present and Murmur heart sound present systolic Back/Spine/Pelvis Other: With turning head side to side, chin tucks, chin raises, no pain noted to cervical spine or radiculopathy. Negative Spurling's. Psych Appearance: grossly normal Mental Status: mental status grossly normal Speech and movement: Normal speech and movement present Affect: normal affect Attitude: cooperative Thought process: Normal thought process present Thought content: Normal thought content present Insight: Good insight present (Psych) Judgement: Good judgement present (Psych) Assessment and Plan Assessment & Plan (1) Cervical neck pain with evidence of disc disease: Code(s): M50.90 - Cervical disc disorder, unspecified, unspecified cervical region Plan: stretching, continue to monitor symptoms, keep me informed. (2) HTN (hypertension): Code(s): I10 - Essential (primary) hypertension Plan: continue amlodipine, call me if sustaining 140/90 or above Orders: Orders XR cervical spine 2V Today M50.90 - Cervical disc disorder, unspecified, unspecified cervical region Coding Level of Care Code Est Pt Level 3 (80559) Diagnoses Cervical neck pain with evidence of disc disease M50.90 HTN (hypertension) I10
[2022-11-19 10:09] VITALS: BP 140/78; PULSE 57; O2SAT 100; BMI 22.9
== END 2022-11-19 10:56 | disposition home or self-care (01) ==
PROVIDERS: PCP Nurse Practitioner Family; Visit Provider Nurse Practitioner Family
DX: M50.90 Cervical disc disorder, unspecified, unspecified cervical region (principal); I10 Essential (primary) hypertension
CPT/HCPCS: 99213

== ENCOUNTER 2022-11-27 12:02 | Outpatient (REF) | payer MEDICARE, SELFPAY ==
--- NOTE | ~2022-11-27 | XR_ITS ---
EXAMINATION: XR cervical spine 2V CLINICAL INFORMATION: Cervical disc disorder COMPARISON: None TECHNIQUE: 3 views of the cervical spine were obtained. FINDINGS: The cervical spine is visualized to the level of C7-T1 on the lateral view. Reversal of usual cervical spine lordosis with minimal retrolisthesis of C5 on C6. Vertebral body heights are maintained. Lateral masses of C1 are well aligned on C2. Visualized portion of the dens is intact. Moderate degenerative disc disease at C3-C4, C4-C5, and C5-C6, manifested by loss of disc space height, anterior disc osteophyte complexes and facet arthropathy. No prevertebral soft tissue swelling. XR/XR cervical spine 2V IMPRESSION: 1. Moderate spondylosis of the cervical spine, as above detailed, with reversal of the usual cervical spine lordosis and minimal retrolisthesis of C5 on C6.
== END 2022-11-27 12:03 | disposition home or self-care (01) ==
LOC: HO.HMGCX 12:02
PROVIDERS: PCP Nurse Practitioner Family; Visit Provider Nurse Practitioner Family
DX: Z00.00 Encounter for general adult medical examination without abnormal findings (principal); M50.90 Cervical disc disorder, unspecified, unspecified cervical region; E55.9 Vitamin D deficiency, unspecified; E78.5 Hyperlipidemia, unspecified; I10 Essential (primary) hypertension
CPT/HCPCS: 36415; 72040; 80053; 80061; 82306; 84443; 85025

== ENCOUNTER 2023-05-20 15:30 | Outpatient (AMB) | payer MEDICARE, SELFPAY ==
[2023-05-20 15:33] VITALS: BP 136/80; PULSE 80; O2SAT 97; BMI 23.9
--- NOTE | 2023-05-20 15:33 | MHC.PC.OV ---
Vital Signs 05/20/23 15:33 Height 5 ft 3 in Weight 135 lb BMI 23.9 BP 136/80 Blood Pressure Location Lt brachial Position Sitting Pulse 80 Pulse Source Pulse Oximeter Pulse Oximetry (%) 97 Oxygen Delivery Method Room Air Intake Visit Reasons: Annual PE Intake Note: pt is here for annual exam Hose Finisher Required: No Accompanied by: Spouse Allergies No Known Allergies Allergy (Verified 05/20/23 15:39) Medication List - Last Reconciled 05/20/23 by CAROLINE Rivera alendronate (Fosamax) 70 mg PO QWEEK 4 weeks amlodipine 5 mg PO DAILY 90 days ascorbic acid (vitamin C) mg PO atorvastatin 20 mg PO BEDTIME calcium carbonate (Calcium) 600 mg PO DAILY cholecalciferol (vitamin D3) 50 mcg PO DAILY 90 days psyllium husk (Daily Fiber) 0.4 grams PO BEDTIME sertraline 25 mg PO DAILY Tobacco use date assessed: 05/20/23 Fall risk assessment: No Falls in past year Last assessed Fall Risk: 05/20/23 Dental Screening Dental Screen Date: 05/20/23 Did you have a dental visit in the last 12 months?: Yes Did you have a dental problem in the last 6 months where you did not have access to dental care?: No Was dental information given to patient?: Patient has dentist HPI Annual PE HPI Details HTN: stable. Mammo is up to date and repeat is scheduled. Pt has an appointment scheduled with GI to discuss colon screen. 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 Pt follows up with cardiology. She was seeing endo but needs a follow up, she will call to schedule this. Pt has a hx of low vitamin D and B12, will order labs. [facility] Medical History Vitamin D deficiency Osteoporosis History of Graves' disease Tubulovillous adenoma Vitamin D deficiency Palpitations Hyperlipidemia Murmur HTN (hypertension) Graves disease Surgical History Hx of colonoscopy History of hernia surgery Hx of abdominal surgery Family History Father Hypertension Diabetes Mother COPD (chronic obstructive pulmonary disease) Social History Household Members: Spouse Housing: Condominium Alcohol intake: current Alcohol intake frequency: a few times a week Alcohol type: beer Patient Tobacco Use Status: Never used Tobacco e-Cigarette/Vaping Use: Never Used Second Hand Smoke Exposure: No service: No Current occupational status: retired Cognitive needs: No Hearing needs: No Vision needs: Yes Questionnaire PHQ-9 Over the last 2 weeks, how often have you been bothered by any of the following problems? 1. Little interest or pleasure in doing things: not at all 2. Feeling down, depressed, or hopeless: several days 3. Trouble falling or staying asleep, or sleeping too much: not at all 4. Feeling tired or having little energy: several days 5. Poor appetite or overeating: not at all 6. Feeling bad about yourself - or that you are a failure or have let yourself or your family down: not at all 7. Trouble concentrating on things, such as reading the newspaper or watching television: not at all 8. Moving or speaking so slowly that other people could have noticed. Or the opposite - being so fidgety or restless that you have been moving around a lot more than usual: not at all 9. Thoughts that you would be better off or of hurting yourself in some way: not at all Total score: 2 Depression Screening Interpretation: Negative (see HPI) Depression Screening Done: Yes 87929 - PHQ-9 Billing: Yes Source: Developed by Drs. Roscoe Hussein, Collette Alex, Gary Alcantara and colleagues, with an educational haley from [employer]. Thrive Questionnaire Date Thrive assessed: 05/14/22 AUDIT C Alcohol Use Questionnaire (AUDIT-C) 1. How often do you have a drink containing alcohol?: 2-3 times a week 2. How many drinks containing alcohol do you have on a typical day when you are drinking?: 1 or 2 3. How often do you have six or more drinks on one occasion?: Never Total Score: 3 Score Reviewed/Action Taken: Yes GLORIA-7 AMB Questionnaire GLORIA-7 Date GLORIA - 7 assessed: 05/20/23 Feeling nervous, anxious, or on edge: 1 = Several days Not being able to stop or control worryin = Several days Worrying too much about different things: 0 = Not at all Trouble relaxin = Not at all Being so restless that it is hard to sit still: 0 = Not at all Becoming easily annoyed or irritable: 1 = Several days Feeling afraid as if something awful might happen: 1 = Several days Total GLORIA-7 score (0-4 normal; 5-9 mild; 10-14 moderate; 15-21 severe): 4 Source: Developed by Drs. Roscoe Hussein, Collette Alex, Gary Alcantara and colleagues, with an educational haley from [employer]. GLORIA-7 Assessment Billing GLORIA-7 Assessment Tool: GLORIA-7 Assessment 02046 Review of Systems Const Denies chills and Denies fever(s) Eyes Denies blurry vision ENT Denies vertigo, Denies dizziness and Denies sore throat Card Denies chest pain at rest, Denies chest pain with activity, Denies diaphoresis, Denies dyspnea and Denies dyspnea on exertion Resp Denies cough, Denies dyspnea, Denies dyspnea on exertion and Denies wheezing GI Denies abdominal pain, Denies melena, Denies hematochezia, Denies constipation, Denies diarrhea and Denies loose stools Denies hematuria Musc Denies numbness and Denies tingling Skin/Breast Denies lesions Neuro Denies vertigo, Denies dizziness, Denies numbness and Denies tingling Psych Denies anxiety, Denies depression, Denies homicidal ideation, Denies suicidal ideation and Denies other (substance abuse) Aller/Immun Denies wheezing Physical exam (Primary Care) Vital Signs: Last Vital Signs Pulse 80 05/20/23 15:33 BP 136/80 05/20/23 15:33 Pulse Ox 97 05/20/23 15:33 Oxygen Delivery Method Room Air 05/20/23 15:33 BMI result Body Mass Index 23.9 Tobacco/Smoking Status: Tobacco use Status Tobacco use date assessed 05/20/23 05/20/23 15:35 Patient Tobacco Use Status Never used Tobacco 05/20/23 15:35 e-Cigarette/Vaping Use Never Used 05/20/23 15:35 PHQ-9: PHQ-9 Score PHQ-9: Total score 2 05/20/23 15:42 Depression Screening Interpretation: Negative (see HPI) Thrive Assessment: Date of Thrive Assessment Date Thrive assessed 05/14/22 05/20/23 15:35 Const General: cooperative Nutritional Appearance: well nourished Orientation/consciousness: patient oriented x3 HENMT Head: Yes normal to inspection, Yes normocephalic and Yes atraumatic Ears: TM's normal bilaterally Eyes General: appearance normal, both eyes and all related structures Alignment and Position: alignment normal and position normal Neck Neck: Yes normal visual inspection and Yes no lymphadenopathy Thyroid: Thyroid normal Resp Effort & Inspection: normal respiratory effort Auscultation: clear to auscultation bilaterally Cardio Rate: regular rate Rhythm: regular rhythm Heart sounds: S1 normal heart sound present, S2 normal heart sound present and Murmur heart sound present systolic GI Palpation (GI): Soft to palpation and nontender Auscultation: normal bowel sounds Skin Rashes: no rashes Neuro General: patient oriented x3, moves all extremities, no focal motor deficits and deep tendon reflexes 2+ bilaterally Romberg Test: Negative Psych Appearance: grossly normal Mental Status: mental status grossly normal Speech and movement: Normal speech and movement present Affect: normal affect Attitude: cooperative Thought process: Normal thought process present Thought content: Normal thought content present Insight: Good insight present (Psych) Judgement: Good judgement present (Psych) Assessment and Plan Assessment & Plan (1) Vitamin D deficiency: Code(s): E55.9 - Vitamin D deficiency, unspecified Plan: Labs ordered (2) Low vitamin B12 level: Code(s): E53.8 - Deficiency of other specified B group vitamins Plan: Labs ordered (3) HTN (hypertension): Code(s): I10 - Essential (primary) hypertension Plan: stable Plan The patient agreed to the use of a electromedical service engineer for this encounter. Scribed for CAROLINE Pompa by Nina Josue electromedical service engineer, on 05/20/2023 at 15:45 EST. Orders: Orders Complete Blood Count Auto Diff Today Z00.00 - Encounter for general adult medical examination without abnormal findings UA CC w/rflx Micro + Cult Today Z00.00 - Encounter for general adult medical examination without abnormal findings Comprehensive [place]. Panel Fast Today Z00.00 - Encounter for general adult medical examination without abnormal findings TSH reflex Free T4 Today Z00.00 - Encounter for general adult medical examination without abnormal findings Lipid Panel Today Z00.00 - Encounter for general adult medical examination without abnormal findings Vitamin D 25-OH Total Today E55.9 - Vitamin D deficiency, unspecified Vitamin B12 and Folate Today E53.8 - Deficiency of other specified B group vitamins Coding Level of Care Code Est Pt Level 3 (00469) Diagnoses Vitamin D deficiency E55.9 Low vitamin B12 level E53.8 HTN (hypertension) I10 Additional Codes GLORIA-7 Assessment Billing - GLORIA-7 Assessment Tool: GLORIA-7 Assessment [id number] ([id number])
== END 2023-05-20 17:02 | disposition home or self-care (01) ==
PROVIDERS: PCP Nurse Practitioner Family; Visit Provider Nurse Practitioner Family
DX: E55.9 Vitamin D deficiency, unspecified (principal); E53.8 Deficiency of other specified B group vitamins; I10 Essential (primary) hypertension
CPT/HCPCS: 99213

== ENCOUNTER → 2023-11-12 10:55 | Outpatient (BNVA) | payer MEDICARE, SELFPAY | PROVIDERS: PCP Nurse Practitioner Family; Visit Provider Nurse Practitioner Family | DX: Z01.818 Encounter for other preprocedural examination (principal); K58.9 Irritable bowel syndrome, unspecified | CPT/HCPCS: 99212 ==

== ENCOUNTER 2023-11-18 15:04 | Outpatient (AMB) | payer MEDICARE, SELFPAY ==
[2023-11-18 15:06] VITALS: BP 132/76; PULSE 91; O2SAT 97; BMI 24.6
--- NOTE | 2023-11-18 15:06 | A.OFFPC_ITS ---
Vital Signs 11/18/23 15:06 Height 5 ft 3 in Weight 139 lb 2 oz BMI 24.6 BP 132/76 Blood Pressure Location Rt brachial Position Sitting Pulse 91 Pulse Source Pulse Oximeter Pulse Oximetry (%) 97 Oxygen Delivery Method Room Air Intake Visit Reasons: 6 wed f/u Allergies No Known Allergies Allergy (Verified 11/18/23 17:45) Medication List - Last Reconciled 11/18/23 by CAROLINE Rivera alendronate (Fosamax) 70 mg PO QWEEK 4 weeks amlodipine 5 mg PO DAILY 90 days ascorbic acid (vitamin C) mg PO atorvastatin 20 mg PO BEDTIME calcium carbonate (Calcium 600) 600 mg PO DAILY cholecalciferol (vitamin D3) 50 mcg PO DAILY 90 days psyllium husk (Daily Fiber) 0.4 grams PO BEDTIME sertraline 25 mg PO DAILY Tobacco use date assessed: 11/18/23 Fall risk assessment: No Falls in past year Last assessed Fall Risk: 11/18/23 Dental Screening Dental Screen Date: 11/18/23 Did you have a dental visit in the last 12 months?: Yes Did you have a dental problem in the last 6 months where you did not have access to dental care?: No Was dental information given to patient?: Patient has dentist HPI Wed f/u HPI Details HTN: Blood pressure is stable, managed with amlodipine 5mg. Denies chest pain, shortness of breath, headache, dizziness, and blurred vision. Pt is awaiting a holter before colon screen can be performed. Pt has a systolic murmur, will order echo, for surveillance. Encouraged pt to have labs drawn. [facility] Medical History Vitamin D deficiency Osteoporosis History of Graves' disease Tubulovillous adenoma Vitamin D deficiency Palpitations Hyperlipidemia Murmur HTN (hypertension) Graves disease Surgical History Hx of colonoscopy History of hernia surgery Hx of abdominal surgery Family History Father Hypertension Diabetes Mother COPD (chronic obstructive pulmonary disease) Social History Household Members: Spouse Housing: Condominium Alcohol intake: current Alcohol intake frequency: a few times a week Alcohol type: beer Patient Tobacco Use Status: Never used Tobacco e-Cigarette/Vaping Use: Never Used Second Hand Smoke Exposure: No service: No Current occupational status: retired Cognitive needs: No Hearing needs: No Vision needs: Yes Questionnaire PHQ-9 Over the last 2 weeks, how often have you been bothered by any of the following problems? 1. Little interest or pleasure in doing things: not at all 2. Feeling down, depressed, or hopeless: not at all 3. Trouble falling or staying asleep, or sleeping too much: not at all 4. Feeling tired or having little energy: not at all 5. Poor appetite or overeating: not at all 6. Feeling bad about yourself - or that you are a failure or have let yourself or your family down: not at all 7. Trouble concentrating on things, such as reading the newspaper or watching television: not at all 8. Moving or speaking so slowly that other people could have noticed. Or the opposite - being so fidgety or restless that you have been moving around a lot more than usual: not at all 9. Thoughts that you would be better off or of hurting yourself in some way: not at all Total score: 0 Depression Screening Interpretation: Negative Depression Screening Done: Yes 36779 - PHQ-9 Billing: Yes Source: Developed by Drs. Roscoe Hussein, Collette Alex, Gary Alcantara and colleagues, with an educational haley from [employer]. Thrive Questionnaire Date Thrive assessed: 11/18/23 I am a: Patient What is your living situation today?: I have a steady place to live Within the past 12 months, did the food you bought not last and you didn't have the money to get more?: Never true Within the past 12 months, did you worry whether your food would run out before you got money to buy more?: Never true Do you have trouble paying for medicines?: No Do you have trouble getting transportation to medical appointments?: Yes Do you have trouble paying your heating and electricity bill?: No Do you have trouble taking care of your child, family member or friend?: No Do you have trouble with day-to-day activities such as bathing, preparing meals, shopping, managing finances, etc.?: No Are you interested in more education?: No Please select the resources that you would like help with: Daily support Currently or been in a relationship where the following occur: No concerns reported THRIVE Score: 1 AUDIT C Alcohol Use Questionnaire (AUDIT-C) 1. How often do you have a drink containing alcohol?: Monthly or less 2. How many drinks containing alcohol do you have on a typical day when you are drinking?: 1 or 2 3. How often do you have six or more drinks on one occasion?: Never Total Score: 1 Score Reviewed/Action Taken: Yes GLORIA-7 AMB Questionnaire GLORIA-7 Date GLORIA - 7 assessed: 11/18/23 Feeling nervous, anxious, or on edge: 1 = Several days Not being able to stop or control worryin = Several days Worrying too much about different things: 0 = Not at all Trouble relaxin = Not at all Being so restless that it is hard to sit still: 0 = Not at all Becoming easily annoyed or irritable: 0 = Not at all Feeling afraid as if something awful might happen: 0 = Not at all Total GLORIA-7 score (0-4 normal; 5-9 mild; 10-14 moderate; 15-21 severe): 2 Source: Developed by Drs. Roscoe Hussein, Collette Alex, Gary Alcantara and colleagues, with an educational haley from [employer]. GLORIA-7 Assessment Billing GLORIA-7 Assessment Tool: GLORIA-7 Assessment 94286 Review of Systems Const Reports as per HPI Physical exam (Primary Care) Vital Signs: Last Vital Signs Pulse 91 11/18/23 15:06 BP 132/76 11/18/23 15:06 Pulse Ox 97 11/18/23 15:06 Oxygen Delivery Method Room Air 11/18/23 15:06 BMI result Body Mass Index 24.6 Tobacco/Smoking Status: Tobacco use Status Tobacco use date assessed 11/18/23 11/18/23 15:08 Patient Tobacco Use Status Never used Tobacco 11/18/23 15:08 e-Cigarette/Vaping Use Never Used 11/18/23 15:08 PHQ-9: PHQ-9 Score PHQ-9: Total score 0 11/18/23 15:08 Depression Screening Interpretation: Negative Thrive Assessment: Date of Thrive Assessment Date Thrive assessed 11/18/23 11/18/23 15:08 Currently or been in a relationship where the following occur: No concerns reported Const General: cooperative Orientation/consciousness: patient oriented x3 Resp Effort & Inspection: normal respiratory effort Auscultation: clear to auscultation bilaterally Cardio Rate: regular rate Rhythm: regular rhythm Heart sounds: S1 normal heart sound present, S2 normal heart sound present and Murmur heart sound present systolic Neuro General: patient oriented x3 Psych Appearance: grossly normal Mental Status: mental status grossly normal Speech and movement: Normal speech and movement present Affect: normal affect Attitude: cooperative Thought process: Normal thought process present Thought content: Normal thought content present Insight: Good insight present (Psych) Judgement: Good judgement present (Psych) Assessment and Plan Assessment & Plan (1) Systolic murmur: Code(s): R01.1 - Cardiac murmur, unspecified Plan: Echo ordered (2) HTN (hypertension): Code(s): I10 - Essential (primary) hypertension Plan: Stable, labs encouraged to be drawn Plan The patient agreed to the use of a medical logistics specialist for this encounter. Scribed for CAROLINE Pompa by Nina Josue medical logistics specialist, on 11/18/2023 at 15:20 EST. Orders: Orders CA echo transthoracic complete Today R01.1 - Cardiac murmur, unspecified Coding Level of Care Code Est Pt Level 3 (08972) Diagnoses Systolic murmur R01.1 HTN (hypertension) I10 Additional Codes GLORIA-7 Assessment Billing - GLORIA-7 Assessment Tool: GLORIA-7 Assessment 17526 ([id number])
== END 2023-11-18 16:00 | disposition home or self-care (01) ==
PROVIDERS: PCP Nurse Practitioner Family; Visit Provider Nurse Practitioner Family
DX: R01.1 Cardiac murmur, unspecified (principal); I10 Essential (primary) hypertension

== ENCOUNTER → 2023-11-18 15:04 | Outpatient (BNVA) | payer MEDICARE, SELFPAY | PROVIDERS: PCP Nurse Practitioner Family; Visit Provider Nurse Practitioner Family | DX: R01.1 Cardiac murmur, unspecified (principal); I10 Essential (primary) hypertension | CPT/HCPCS: 96127; 99212 ==

== ENCOUNTER → 2023-12-30 12:46 | Outpatient (REF) | payer MEDICARE, SELFPAY ==
--- NOTE | 2023-12-30 12:49 | HM_ITS ---
* Total monitoring time 7 days. * Underlying rhythm is sinus with an average rate of 68/Min. * Rare supraventricular ectopy. * Rare ventricular ectopy. * No significant pauses or high-grade AV blocks. * No patient markers or diary events. MTDD
--- NOTE | 2023-12-30 12:49 | CA_ITS ---
Transthoracic Echocardiogram Patient (Last, First, Middle): Maile Snow S Gender: Female Date of : 1955 Age: 68 Procedure Date: 12/30/2023 Procedure Type: Transthoracic Echocardiogram Location: OP Height: 160.02 cm Weight: 58.97 kg BSA: 1.61 m2 Heart Rate: bpm BP: 130 / 86 mmHg Home [employer] Extension Worker: TO Referring MD: Jorge Sanchez [facility] [place] [facility] Supervisor: Ayaan Ramos MD Symptoms: R01.1 - Cardiac murmur, unspecified Study Quality: Fair ECG Rhythm: Sinus Conclusions: - 1. Normal LV ejection fraction of 65-70% with impaired relaxation filling pattern 2. Mildly dilated left atrium 3. Mild mitral regurgitation as well as mildly increased gradient across aortic valve of unclear significance without any clear aortic stenosis 4. Normal RV systolic pressure 5. No gross pericardial effusion Findings Left Ventricle Normal left ventricular size, thickness, and systolic function. The visually estimated ejection fraction is between 65-70%. Spectral Doppler is indicative of an impaired relaxation filling pattern. E/E prime ratio is between 8 and 15 consistent with indeterminate filling pressures. Right Ventricle Normal right ventricular cavity size and systolic function. Atria The left atrium is mildly dilated. There is no evidence of interatrial shunt. The right atrium is likely dilated. Aortic Valve Normal aortic valve structure and function. There is no aortic valve stenosis. There is no aortic valve regurgitation. there is mildly increased gradient across the aortic valve, of unclear etiology. The valve is opening well and there is unlikely that this represents aortic stenosis. High stroke volume or mild LVOT obstruction can not be entirely ruled out Mitral Valve Likely normal mitral valve structure and function. There is mild mitral valve regurgitation. There is no mitral valve stenosis. Pulmonic Valve The pulmonic valve is likely normal. Tricuspid Valve Normal tricuspid valve structure. There is mild tricuspid valve regurgitation. The right ventricular systolic pressure is normal. The right ventricular systolic pressure is 27 mmHg. Normal right atrial pressure. There is no evidence of pulmonary hypertension. Great Vessels All visible segments of the aorta are normal in size. The pulmonary artery was not well visualized. There is no dilatation of the ascending aorta measuring 3.40 cm. Venous The inferior vena cava is normal in size and collapses greater than 50% with inspiration. Pericardium/Pleural There is no evidence of pericardial effusion. Prior Study Comparison No significant change compared to prior study dated: 07/29/2020. Measurements 2D Linear Measurements IVSd: 0.91 0.6-0.9/0.6-1.0 cm LVIDd: 3.37 3.9-5.3/4.2-5.9 cm LVIDd Index: 2.09 2.4-3.2/2.2-3.1 cm/m2 LVIDs: 2.24 2.0-3.6 cm LVPWd: 0.98 0.7-1.1 cm LA Diam: 2.70 2.7-3.8/3.0-4.0 cm LAIDs Index: 1.68 1.5-2.3 cm/m2 LV Mass: 147.28 67-162/88-224 g LV Mass Index: 91.48 43-95/49-115 g/m2 LVOT Diam: 1.90 3.0+(-)1.3 cm 2D Systolic Function EF 4C: 65.50 >55% EF 2C: 69.30 >55% EF BiP: 67.80 >55% Mitral Valve MV Pk E: 0.81 MV PK A: 0.71 MV Decel Time: 143.00 E/A: 1.20 E'Lateral: 7.62 E'Medial: 5.66 E/E' Med: 14.40 E/E' Lat: 10.70 PHT: 42.00 MVA PHT: 5.24 Decel Emanuel: 5.69 Aortic Valve AoV Pk Philippe: 2.25 AoV Mn Philippe: 1.45 AoV VTI: 0.45 AoV Pk Grad: 20.00 Aov Mn Grad: 10.00 MICKY Cont.VTI: 2.14 LVOT LVOT Pk Philippe: 1.36 LVOT Mn Philippe: 1.01 LVOT VTI: 0.34 LVOT Pk Grad: 7.00 LVOT Mn Grad: 5.00 LVOT Diam: 1.90 LVOT Area: 2.84 Diastolic Function MV Pk E: 0.81 MV Pk A: 0.71 E/A: 1.20 E'Medial: 5.66 E/E' Med: 14.40 E' Laterial: 7.62 E/E' Lat: 10.70 Tricuspid Valve TR Pk Philippe: 2.46 TR Pk Grad: 24.00 RA Press: 3.00 RVSP: 27.00 Great Vessels Aorta Sinus of Valsalva: 3.06 2.0-3.5 cm Ao Asc: 3.40 2.1-3.4 cm Updated in Other Vendor System with Status of Final Ayaan Ramos MD electronically signed on 12/31/2023 11:53:24 AM with status of Final
== END ==
LOC: HO.CARD 12:46
PROVIDERS: PCP Nurse Practitioner Family; Visit Provider Nurse Practitioner Family
DX: R00.2 Palpitations (principal); R01.1 Cardiac murmur, unspecified
CPT/HCPCS: 93242; 93306

== ENCOUNTER → 2023-12-30 12:49 | Outpatient (BNV) | payer MEDICARE, SELFPAY | PROVIDERS: PCP Nurse Practitioner Family; Visit Provider Internal Medicine Cardiovascular Disease | DX: I47.10 Supraventricular tachycardia, unspecified (principal) | CPT/HCPCS: 93244; 93306 ==

== ENCOUNTER 2024-01-26 13:33 | Outpatient (REF) | payer MEDICARE, SELFPAY ==
[2024-01-26 15:42] LABS: Anion Gap 14 (12-20); Blood Urea Nitrogen 11 mg/dL (9-16); Calcium 9.9 mg/dL (8.4-10.2); Carbon Dioxide 26 mmol/L (22-29); Chloride 104 mmol/L (96-108); Estimated Glomerular Filt Rate > 60; Glucose Random 95 mg/dL (60-115); Potassium 4.2 mmol/L (3.3-5.1); Sodium 140 mmol/L (135-145)
== END 2024-01-26 13:34 | disposition home or self-care (01) ==
LOC: HO.LAB 13:33
PROVIDERS: PCP Nurse Practitioner Family; Visit Provider Internal Medicine Cardiovascular Disease
DX: R00.2 Palpitations (principal); I10 Essential (primary) hypertension; E05.00 Thyrotoxicosis with diffuse goiter without thyrotoxic crisis or storm
CPT/HCPCS: 36415; 80048; 84443; 93005; 99212

== ENCOUNTER 2024-01-26 13:33 | Outpatient (AMB) | payer MEDICARE, SELFPAY ==
[2024-01-26 13:40] VITALS: BP 120/70; PULSE 79; BMI 24.7
--- NOTE | 2024-01-26 13:40 | MHC.OFFVIS ---
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 Required: No Accompanied by: Self / Same As Patient Allergies No Known Allergies Allergy (Verified 11/18/23 17:45) Medication List - Last Reconciled 01/27/24 by Eloy Villanueva MD alendronate (Fosamax) 70 mg PO QWEEK 4 weeks amlodipine 5 mg PO DAILY 90 days ascorbic acid (vitamin C) mg PO atorvastatin 20 mg PO BEDTIME bisacodyl (Dulcolax (bisacodyl)) 20 mg (4 x 5 mg) PO ONCE 1 day calcium carbonate (Calcium 600) 600 mg PO DAILY cholecalciferol (vitamin D3) 50 mcg PO DAILY 90 days polyethylene glycol 3350 (Miralax) 238 grams PO ONCE psyllium husk (Daily Fiber) 0.4 grams PO BEDTIME sertraline 25 mg PO DAILY HPI Comments Details: Pleasant 68-year-old female here for follow-up. She has background history of hypertension. She was started on amlodipine with good control of blood pressure. She continues to have some off and on palpitations. She is denying chest pain or shortness of breath. On follow-up she continues to have some palpitations. We discussed about doing further workup but she is also due to see endocrinology for previous history of hyperthyroidism which was told to her was due to Graves disease. She is saying that she is due to see Endocrinology in a month and will be getting blood workup. Overall doing well and has no significant issues. 01/26/24: She is here for f/u. Occasional palpitations lasting for few seconds. No CP. Holter did not show any significant arrhythmia. [facility] Medical History Vitamin D deficiency Osteoporosis History of Graves' disease Tubulovillous adenoma Vitamin D deficiency Palpitations Hyperlipidemia Murmur HTN (hypertension) Graves disease Surgical History (Reviewed 01/26/24 @ 13:43 by Joie Richardson [facility]) Hx of colonoscopy History of hernia surgery Hx of abdominal surgery Family History Father Hypertension Diabetes Mother COPD (chronic obstructive pulmonary disease) Social History Household Members: Spouse Housing: Condominium Alcohol intake: current Alcohol intake frequency: a few times a week Alcohol type: beer Patient Tobacco Use Status: Never used Tobacco e-Cigarette/Vaping Use: Never Used Second Hand Smoke Exposure: No service: No Current occupational status: retired Cognitive needs: No Hearing needs: No Vision needs: Yes Review of Systems Const Denies chills, Denies fatigue, Denies fever(s), Denies frequent falls, Denies weakness, Denies weight gain and Denies weight loss ENT Denies dizziness Card Denies chest pain, Denies leg edema, Denies lightheadedness, Denies palpitations, Denies dyspnea and Denies dyspnea on exertion Resp Denies cough, Denies dyspnea and Denies dyspnea on exertion GI Denies hematochezia Musc Denies abnormal gait, Denies muscle weakness, Denies numbness, Denies radiating pain into limb and Denies tingling Neuro Denies abnormal gait, Denies dizziness, Denies frequent falls, Denies numbness, Denies tingling and Denies weakness Endo Denies fatigue and Denies palpitations Physical Exam Vital Signs: Last Vital Signs Pulse 79 01/26/24 13:40 BP 120/70 01/26/24 13:40 BMI result Body Mass Index 24.7 GENERAL APPEARANCE: in no acute distress, pleasant. NECK: no carotid bruit, no jugular venous distention. SKIN: no suspicious lesions, warm and dry. HEART: Mid systolic murmur, regular rate and rhythm. LUNGS: clear to auscultation bilaterally. ABDOMEN: soft, nontender. EXTREMITIES: no edema. PERIPHERAL PULSES: equal. NEUROLOGIC: No gross deficits, AAO X 3 Office Procedures EKG Details: Sinus rhythm 79 beats per minute, normal axis, premature atrial complexes, QTC 440 milliseconds. [id number], Complete Assessment & Plan Assessment & Plan (1) HTN (hypertension): Code(s): I10 - Essential (primary) hypertension Category: Medical (2) Graves disease: Comment: diagnosed 10 years ago Code(s): E05.00 - Thyrotoxicosis with diffuse goiter without thyrotoxic crisis or storm Category: Medical (3) Palpitations: Code(s): R00.2 - Palpitations Category: Medical Plan 68-year-old female who is here for follow-up. She has background history of Graves disease and palpitations. She was following with endocrinology and apparently Graves disease has been stable. She has occasional palpitations lasting for few seconds. Holter monitor adjust shown premature atrial complexes and short runs of SVT. She is only complaining of few seconds episodes which are not frequent. I have discussed with her about using propranolol versus observation for now. So far we have decided that we will just watch her. I will send some basic labs including TSH to reassess the thyroid function and if there is any concerns on the testing then we will refer to endocrinology. Thank you for allowing me to participate in the care of your patient. Please feel free to contact me if you have any questions. Orders: Orders TSH reflex Free T4 01/26/24 R00.2 - Palpitations Basic Metabolic Panel 01/26/24 R00.2 - Palpitations Coding Level of Care Code Est Pt Level 4 (30189) Diagnoses HTN (hypertension) I10 Graves disease E05.00 Palpitations R00.2 CPT Codes EKG - CPT: 69348-[id number], Complete ([id number])
== END 2024-01-26 14:04 | disposition home or self-care (01) ==
PROVIDERS: PCP Nurse Practitioner Family; Visit Provider Internal Medicine Cardiovascular Disease
DX: R00.2 Palpitations (principal)
CPT/HCPCS: 93010; 99214

== ENCOUNTER 2024-03-09 15:03 | Outpatient (REF) | payer MEDICARE, SELFPAY | END 2024-03-09 15:04 | disposition home or self-care (01) | LOC: HO.MAMMO 15:03 | PROVIDERS: PCP Nurse Practitioner Family; Visit Provider Nurse Practitioner Family | DX: Z12.31 Encounter for screening mammogram for malignant neoplasm of breast (principal) | CPT/HCPCS: 77063; 77067 ==

== ENCOUNTER 2024-05-05 15:18 | Outpatient (REF) | payer MEDICARE, SELFPAY ==
[2024-05-09 05:28] LABS: Rubella IgG Antibody 5.69 Index; Rubeola IgG (Measles) >300.00 AU/mL
== END 2024-05-05 15:19 | disposition home or self-care (01) ==
LOC: HO.HMGCLDS 15:18
PROVIDERS: PCP Nurse Practitioner Family; Visit Provider Nurse Practitioner Family
DX: Z01.84 Encounter for antibody response examination (principal); Z28.39 Other underimmunization status
CPT/HCPCS: 36415; 86735; 86762; 86765

== ENCOUNTER 2024-06-29 14:57 | Outpatient (AMB) | payer MEDICARE, SELFPAY ==
[2024-06-29 15:00] VITALS: BP 118/70; PULSE 72; O2SAT 96; BMI 24.8
--- NOTE | 2024-06-29 15:00 | A.OFFPC_ITS ---
Vital Signs 06/29/24 15:00 Height 5 ft 3 in Intake Visit Reasons: AWV [id number] Allergies No Known Allergies Allergy (Verified 11/18/23 17:45) Tobacco use date assessed: 11/18/23 Dental Screening Dental Screen Date: 11/18/23 [facility] Medical History (Reviewed 11/18/23 @ 17:47 by Jorge Sanchez, [facility]) Vitamin D deficiency Osteoporosis History of Graves' disease Tubulovillous adenoma Vitamin D deficiency Palpitations Hyperlipidemia Murmur HTN (hypertension) Graves disease Surgical History Hx of colonoscopy History of hernia surgery Hx of abdominal surgery Family History Father Hypertension Diabetes Mother COPD (chronic obstructive pulmonary disease) Social History Household Members: [facility] Alcohol intake: current Alcohol intake frequency: a few times a week Alcohol type: beer Patient Tobacco Use Status: Never used Tobacco e-Cigarette/Vaping Use: Never Used Second Hand Smoke Exposure: No service: No Current occupational status: retired Cognitive needs: No Hearing needs: No Vision needs: Yes Questionnaire Thrive Questionnaire Date Thrive assessed: 06/29/24 GLORIA-7 AMB Questionnaire GLORIA-7 Date GLORIA - 7 assessed: 11/18/23 Source: Developed by Drs. Roscoe Hussein, Collette Alex, Gary Alcantara and colleagues, with an educational haley from [employer]. Physical exam (Primary Care) Tobacco/Smoking Status: Tobacco use Status Tobacco use date assessed 11/18/23 11/18/23 15:08 Patient Tobacco Use Status Never used Tobacco 11/18/23 15:08 e-Cigarette/Vaping Use Never Used 11/18/23 15:08 Thrive Assessment: Date of Thrive Assessment Date Thrive assessed 06/29/24 06/29/24 14:57 Coding
--- NOTE | 2024-06-29 15:19 | A.OFFVIS_ITS ---
Intake Vital Signs 06/29/24 15:00 06/29/24 15:21 Height 5 ft 3 in Weight 140 lb BMI 24.8 24.8 BP 118/70 Blood Pressure Location Lt brachial Position Sitting Pulse 72 Pulse Source Pulse Oximeter Pulse Oximetry (%) 96 Oxygen Delivery Method Room Air Intake Visit Reasons: AWV G0438 New Account Interviewer Required: No Accompanied by: Spouse Allergies No Known Allergies Allergy (Verified 06/29/24 15:19) Do you need a note to return to daycare/school/sports/work: No HPI AWV G0438 HPI Details AWV: CCC not filled out. PPP in scan pile. PFSH Medical History Vitamin D deficiency Osteoporosis History of Graves' disease Tubulovillous adenoma Vitamin D deficiency Palpitations Hyperlipidemia Murmur HTN (hypertension) Graves disease Surgical History Hx of colonoscopy History of hernia surgery Hx of abdominal surgery Family History Father Hypertension Diabetes Mother COPD (chronic obstructive pulmonary disease) Social History Household Members: Spouse Housing: Condominium Alcohol intake: current Alcohol intake frequency: a few times a week Alcohol type: beer Patient Tobacco Use Status: Never used Tobacco e-Cigarette/Vaping Use: Never Used Second Hand Smoke Exposure: No service: No Current occupational status: retired Cognitive needs: No Hearing needs: No Vision needs: Yes Questionnaire Medicare Wellness Checkup What [age] 65-71 What gender do you identify with?: female During the past 4 weeks, how much have you been bothered by emotional problems such as feeling anxious, depressed, irritable, sad or downhearted, and blue?: quite a bit During the past 4 weeks, has your physical & emotional health limited your social activities with family, friends, neighbors, or groups?: quite a bit During the past 4 weeks, how much bodily pain have you generally had?: no pain During the past 4 weeks, was someone available to help you if you needed & wa nted help?: yes, quite a bit During the past 4 weeks, what was the hardest physical activity you could do for at least 2 minutes?: moderate Can you get to places out of walking distance without help? (For eg., can you travel alone on buses, taxis or drive your car?): Yes Can you go shopping for groceries or clothes without someone's help?: Yes Can you prepare your own meals?: Yes Can you do your housework without help?: Yes Because of any health problems, do you need the help of another person with your personal care needs such as eating, bathing, dressing or getting around the house?: No Can you handle your own money without help?: Yes During the past 4 weeks, how would you rate your health in general?: good During the past 4 weeks how have things been going for you?: good & bad parts about equal Are you having difficulties driving your car?: no Do you always fasten your seat belt when you are in a car?: yes, usually During past 4 weeks, have you been bothered by the following: never: Falling or dizzy when standing up, Sexual problems? and Problems using the telephone? and sometimes: Teeth or denture problems? and Tiredness or fatigue? Have you fallen 2 or more times in the past year?: No Are you afraid of falling?: No Are you a smoker?: no During the past 4 weeks, how many drinks of wine, beer, or other alcoholic beverages did you have?: 6-9 drinks per week Do you exercise for about 20 minutes 3 or more times a week?: no, I usually do not exercise this much Have you been given information to help with the following?: no: Hazards in your house that might hurt you? and no: Keeping track of your medications? How often do you have trouble taking medicines the way you have been told to take them?: I seldom take medications as prescribed How confident are you that you can control & manage most of your health problems?: not very confident What is your race?: White Mini Mental State Exam (MMSE) Orientation What is the (year) (season) (date) (day) (month)?: year, season, date, day and month Where are we (state) (county) (town or city) (hospital) (floor)?: state, county, town or city, hospital/clinic and floor Registration Name of 3 unrelated objects clearly and slowly, then ask patient to repeat all 3 of them. (1st repeat determines score. Make sure they can repeat all three): object 1, object 2 and object 3 Attention & Calculation (CHOOSE ONE) Spell WORLD backwards (DLROW): 5 letters Recall Ask patient to repeat the 3 items from question #3.: object 1, object 2 and object 3 Language Show patient a wristwatch & ask what it is. Repeat for pencil.: watch Ask the patient to repeat the phrase 'No ifs, ands, or buts' after you.: correct Ask the patient to 'take a piece of paper with their right hand' 'fold paper in half' 'place paper on floor': take paper in right hand, fold paper in half and place paper on floor Print the sentence 'CLOSE YOUR EYES' on a piece. If patient actually closes eyes then score.: followed written direction Give patient a blank piece of paper & ask to write a sentence. Score if it contains a noun & verb.: sentence contains subject and verb Ask patient to copy figure of intersecting pentagons exactly. Score if all 10 angles & 2 intersects are included.: all 10 angles present & 2 are intersected Score Score: 29 Activity of Daily Living Bathing - sponge bath, tub bath or shower: receives no assistance (gets in/out by self, if usual bathing means Toileting - going to the 'toilet room' for urine/bowel elimination & cleaning self/arranging clothes: goes to toilet room, cleans self, arranges clothes without help Transfer: moves in & out of bed and chair without help (may use support object) Continence: controls urination/bowel movements completely by self Feeding: feeds self without help Total Score: 0 Information obtained from: patient Using telephone: independent Traveling: independent Shopping: independent Preparing meals: independent Housework: independent Taking medicine: independent Managing money: independent PHQ-9 Over the last 2 weeks, how often have you been bothered by any of the following problems? 1. Little interest or pleasure in doing things: more than half the days 2. Feeling down, depressed, or hopeless: several days 3. Trouble falling or staying asleep, or sleeping too much: not at all 4. Feeling tired or having little energy: more than half the days 5. Poor appetite or overeating: more than half the days 6. Feeling bad about yourself - or that you are a failure or have let yourself or your family down: not at all 7. Trouble concentrating on things, such as reading the newspaper or watching television: several days 8. Moving or speaking so slowly that other people could have noticed. Or the opposite - being so fidgety or restless that you have been moving around a lot more than usual: not at all 9. Thoughts that you would be better off or of hurting yourself in some way: not at all Total score: 8 Depression Screening Interpretation: Positive (denies any si or hi, encouraged to restart sertraline) Depression Screening Follow-up: Existing condition Depression Screening Done: Yes 66391 - PHQ-9 Billing: Yes Source: Developed by Drs. Roscoe Hussein, Collette Alex, Gary Alcantara and colleagues, with an educational haley from [employer]. GLORIA-7 AMB Questionnaire GLORIA-7 Date GLORIA - 7 assessed: 06/29/24 Feeling nervous, anxious, or on edge: 1 = Several days Not being able to stop or control worryin = Several days Worrying too much about different things: 0 = Not at all Trouble relaxin = Not at all Being so restless that it is hard to sit still: 0 = Not at all Becoming easily annoyed or irritable: 0 = Not at all Feeling afraid as if something awful might happen: 0 = Not at all Total GLORIA-7 score (0-4 normal; 5-9 mild; 10-14 moderate; 15-21 severe): 2 Source: Developed by Drs. Roscoe Hussein, Collette Alex, Gary Alcantara and colleagues, with an educational haley from [employer]. GLORIA-7 Assessment Billing GLORIA-7 Assessment Tool: GLORIA-7 Assessment 22786 Physical Exam Vital Signs: Last Vital Signs Pulse 72 06/29/24 15:00 BP 118/70 06/29/24 15:00 Pulse Ox 96 06/29/24 15:00 Oxygen Delivery Method Room Air 06/29/24 15:00 BMI result Body Mass Index 24.8 Neuro Other: + whisper test, neg rhomberg, able to tandem walk, able to stand from sitting position Assessment & Plan Assessment & Plan (1) Osteoporosis: Code(s): M81.0 - Age-related osteoporosis without current pathological fracture (2) Encounter for annual wellness visit (AWV) in Medicare patient: Code(s): Z00.00 - Encounter for general adult medical examination without abnormal findings Plan . Orders: Orders XR DEXA axial skeleton Today M81.0 - Age-related osteoporosis without current pathological fracture Medications: New psyllium husk (Daily Fiber) 0.4 grams PO BEDTIME 90 caps 0RF Changed From ascorbic acid (vitamin C) PO To ascorbic acid (vitamin C) 500 mg PO DAILY 90 caps 0RF Refilled alendronate (Fosamax) 70 mg PO QWEEK 4 weeks 4 tabs 3RF cholecalciferol (vitamin D3) 50 mcg PO DAILY 90 days 90 caps 2RF sertraline 25 mg PO DAILY 90 tabs 1RF amlodipine 5 mg PO DAILY 90 days 90 tabs 1RF atorvastatin 20 mg PO BEDTIME 90 tabs 1RF calcium carbonate (Calcium 600) 600 mg PO DAILY 90 tabs 2RF Quality Reporting (2019) Depression/Bipolar (159/160/161/177) PHQ-9: Total score: 8 Coding Level of Care Code Medicare First (G0438) Diagnoses Osteoporosis M81.0 Encounter for annual wellness visit (AWV) in Medicare patient Z00.00 CPT Codes Advance Care Planning - Time spent: 1-15 minutes, on File ([id number]) Additional Codes GLORIA-7 Assessment Billing - GLORIA-7 Assessment Tool: GLORIA-7 Assessment 39620 ([id number]) PHQ-9 - 36305 - PHQ-9 Billing: Yes ([id number]) Advance Care Planning Forms completed: Health Care Proxy (form explained and given to pt), MOLST (form explained and given to pt) and Living will (encouraged to get done) Time spent: 1-15 minutes, on File Actual minutes spent: 12
[2024-06-29 15:21] VITALS: BMI 24.8
== END 2024-06-29 16:53 | disposition home or self-care (01) ==
LOC: HO.HMCC 14:57
PROVIDERS: PCP Nurse Practitioner Family; Visit Provider Nurse Practitioner Family
DX: Z00.00 Encounter for general adult medical examination without abnormal findings (principal); M81.0 Age-related osteoporosis without current pathological fracture

== ENCOUNTER → 2024-06-29 14:57 | Outpatient (BNVA) | payer MEDICARE, SELFPAY | PROVIDERS: PCP Nurse Practitioner Family; Visit Provider Nurse Practitioner Family | DX: Z00.00 Encounter for general adult medical examination without abnormal findings (principal); M81.0 Age-related osteoporosis without current pathological fracture | CPT/HCPCS: 96127 ==

== ENCOUNTER 2024-08-08 07:46 | Day surgery (SDC) | payer MEDICARE, SELFPAY ==
[2024-08-04 15:18] VITALS: BMI 24.8
--- NOTE | 2024-08-07 13:07 | P.CONAN_ITS ---
Documented by User: Sonam Hi NP 08/07/24 13:08 HPI - Anesthesia Eval Consult details Narrative: 69yo F for Colonoscopy PMFSH Active Problems Active Problems: All Active Problems Encounter for annual wellness visit (AWV) in Medicare patient (Acute) Immunizations incomplete (Acute) HTN (hypertension) (Acute) Cervical neck pain with evidence of disc disease (Acute) Anxiety with depression (Acute) Vitamin D deficiency (Acute) Osteoporosis (Acute) History of Graves' disease (Acute) Low vitamin B12 level (Acute) Graves disease (Acute) Tubulovillous adenoma (Acute) Stress due to illness of family member (Acute) Screening for colon cancer (Acute) Screening for breast cancer (Acute) Physical exam (Acute) Postmenopausal (Acute) Bilateral knee pain (Acute) Systolic murmur (Acute) Dyslipidemia (Acute) Chest pain (Acute) Essential hypertension (Acute) Palpitations (Acute) Preop cardiovascular exam (Acute) Upper respiratory tract infection (Acute) Past Medical History Medical History Vitamin D deficiency Osteoporosis History of Graves' disease Tubulovillous adenoma Vitamin D deficiency Palpitations Hyperlipidemia Murmur HTN (hypertension) Graves disease Family History Family History Father Hypertension Diabetes Mother COPD (chronic obstructive pulmonary disease) Family history of problems with anesthesia: No Surgical History Surgical History Hx of colonoscopy History of hernia surgery Hx of abdominal surgery History of Problems with Anesthesia: No Social History Social History Household Members: Spouse Housing: Condominium Alcohol intake: current Alcohol intake frequency: a few times a week Alcohol type: beer Patient Tobacco Use Status: Never used Tobacco e-Cigarette/Vaping Use: Never Used Second Hand Smoke Exposure: No Use of substances other than those prescribed or required for medical reasons: No Are you DNR?: No Advance Directives: No Advance Directives Information Provided: Yes Patient : No : No Poor oral hygiene: No service: No Current occupational status: retired Cognitive needs: No Hearing needs: No Vision needs: Yes Meds Allergies Allergy/AdvReac Type Severity Reaction Status Date / Time No Known Allergies Allergy Verified 06/29/24 15:19 Exam Height,Weight and Vital Signs: Height 5 ft 3 in Weight 63.503 kg Assessment and Plan Assessment Anesthesia Assessment: Chart Reviewed Final Anesthetic Review Family History of Problems with Anesthesia: No History of Problems with Anesthesia: No Documented by User: Isai Brewster MD 08/08/24 08:58 PMFSH Past Medical History Medical History Vitamin D deficiency Osteoporosis History of Graves' disease Tubulovillous adenoma Vitamin D deficiency Palpitations Hyperlipidemia Murmur HTN (hypertension) Graves disease Family History Family History Father Hypertension Diabetes Mother COPD (chronic obstructive pulmonary disease) Surgical History Surgical History Hx of colonoscopy History of hernia surgery Hx of abdominal surgery Social History Social History [facility]: [facility] Alcohol intake: current Alcohol intake frequency: a few times a week Alcohol type: beer Patient Tobacco Use Status: Never used Tobacco e-Cigarette/Vaping Use: Never Used Second Hand Smoke Exposure: No Use of substances other than those prescribed or required for medical reasons: No Are you DNR?: No Advance Directives: No Advance Directives Information Provided: Yes Patient : No : No Poor oral hygiene: No service: No Current occupational status: retired Cognitive needs: No Hearing needs: No Vision needs: Yes Meds Allergies Allergy/AdvReac Type Severity Reaction Status Date / Time No Known Allergies Allergy Verified 06/29/24 15:19 Exam Airway Mallampati Class: III TM Dist: >3cm Neck ROM: Full Assessment and Plan Assessment Anesthesia Assessment: Anesthesia Plan Discussed Final Anesthetic Review NPO: Yes ASA Class: II Final Preanesthetic Review: No Changes in Pt Med Stat, Meds/Allgs Chart Reviewed, Consent Obtained/Reviewed and Anes Risks/Benef Reviewed Patient Risk: Low Procedure Risk: Low Anesthetic Plan Anesthetic Plan: TIVA Disposition: Standard PACU
--- NOTE | 2024-08-08 08:39 | P.HPSUR_ITS ---
Pre-Procedural Eval Section A - 24 Hr Update-Section A only Date of Service: 08/08/24 Section B - Complete if H&P > 30 days Chief Complaint: Encounter for screening for malignant neoplasm of Relevant Family History (Specify if Yes): No Relevant Social History: None Present Medications: see Short Stay Collaborative assessment Medical History: Significant History (Vitamin D deficiency Osteoporosis History of Graves' disease Tubulovillous adenoma Vitamin D deficiency Palpitations Hyperlipidemia Murmur HTN (hypertension) Graves disease) History of Previous Operations: Relevant previous surgery/procedure and date(s) ( Hx of colonoscopy History of hernia surgery Hx of abdominal surgery) Allergies: Allergies Allergy/AdvReac Type Severity Reaction Status Date / Time No Known Allergies Allergy Verified 06/29/24 15:19 Review of Systems Sugical H&P ROS: Negative: Constitution, Cardiovascular, Respiratory, Neurological, Psychiatric, Hem-Onc, Allergic/Immunologic, Gastrointestinal, Genitourinary, Musculoskeletal, Integumentary, Endocrine and Eyes/Ears/Nos e/Throat Exam Surgical H&P Exam: Normal: HEENT, Normal: Heart, Normal: Lungs, Normal: Extremities, Normal: Abdomen, Normal: Skin and Normal: Neurological Plan Diagnosis/Plan: Unchanged I have reviewed the history and physical and performed a pertinent physical examination on my patient. No changes have occurred unless specified. Time Spent With Patient Time: Total time managing care of this patient today ____ minutes.
[2024-08-08 08:41] VITALS: BMI 24.9
[2024-08-08 08:50] VITALS: BP 173/97; PULSE 91; RESP 16; TEMP 35.9; O2SAT 100
[2024-08-08] MEDS: Lactated Ringers 1,000 ML 100 ML IVCONT (09:03)
--- NOTE | 2024-08-08 09:27 | HO.OPN-COLON ---
Colonoscopy Operative Note Operative Note Date of Service: 08/08/24 Narrative: Operative Information Procedure Description: Colonoscopy Indication: hx of colon polyps Anesthesia: MAC COLONOSCOPY Instrument: Olympus variable stiffness pediatric scope 190L Colonoscopy Monitoring: Vital signs and clinical assessment, continuous EKG monitoring, Pulse oximetry, Carbon Dioxide monitoring and blood pressure monitoring were done throughout the procedure. Colon withdrawal time was 13 minutes. Procedure: The patient was placed in the left lateral decubitis position and pre-procedure medications were administered. After a digital rectal examination of the ano-rectum, the video colonoscope was inserted into the rectum and advanced through the colon to the cecum/TI. The colonoscope was slowly withdrawn in a retrograde panoramic fashion and the colon mucosa was carefully examined including a retroflexed view of the rectum. Findings and interventions are described below. Procedure Difficulty: moderate Findings: Terminal Ileum-not intubated Cecum: x 2 sessile polyps 5-6 mm removed with cold forceps Ascending Colon: normal Transverse Colon -normal Descending Colon:normal Sigmoid Colon: normal Rectum: Retroflexion with small internal hemorrhoids seen, grade I Anorectum - normal Intervention: cold forceps Colon preparation: [place] Bowel Preparation Scale Right colon; 1-2 Transverse colon: 2 Left colon; 2 (0 = Unprepared colon segment with mucosa not seen due to solid stool that cannot be cleared. 1 = Portion of mucosa of the colon segment seen, but other areas of the colon segment not well seen due to staining, residual stool and/or opaque liquid. 2 = Minor amount of residual staining, small fragments of stool and/or opaque liquid, but mucosa of colon segment seen well. 3 = Entire mucosa of colon segment seen well with no residual staining, small fragments of stool or opaque liquid) Impression and Post Procedure Diagnosis: colon polyps x 2 internal hemorrhoids Plan: High fiber diet leaflet Avoid straining at stool, epsom salts and sitz bath, anusol supps or cream Repeat Colonoscopy in 3 years due to polyps and some areas of fair prep or earlier if clinically indicated Above findings were reviewed with the patient and relevant handouts were provided if indicated.
[2024-08-08 09:31] VITALS: BP 134/82; PULSE 77; RESP 15; TEMP 36.8; O2SAT 98
[2024-08-08 09:46] VITALS: BP 151/77; PULSE 74; RESP 16; TEMP 36.8; O2SAT 98
== END 2024-08-08 10:21 | disposition home or self-care (01) ==
PROVIDERS: PCP Nurse Practitioner Family; Visit Provider Internal Medicine Gastroenterology
PROC: 0DJD8ZZ Inspection of Lower Intestinal Tract, Via Natural or Artificial Opening Endoscopic (ICD-10-PCS; CPT 45378; principal; 2024-08-08 10:00)
DX: Z12.11 Encounter for screening for malignant neoplasm of colon (principal); Z86.0101 Personal history of adenomatous and serrated colon polyps; D12.0 Benign neoplasm of cecum; K64.0 First degree hemorrhoids; I10 Essential (primary) hypertension; E78.5 Hyperlipidemia, unspecified; E05.00 Thyrotoxicosis with diffuse goiter without thyrotoxic crisis or storm; E55.9 Vitamin D deficiency, unspecified; M81.0 Age-related osteoporosis without current pathological fracture; R00.2 Palpitations; Z79.899 Other long term (current) drug therapy
CPT/HCPCS: 45380; 88305; J2003; J2704

== ENCOUNTER → 2024-08-08 07:46 | Outpatient (BNV) | payer MEDICARE, SELFPAY | PROVIDERS: PCP Nurse Practitioner Family; Visit Provider Internal Medicine Gastroenterology | DX: Z12.11 Encounter for screening for malignant neoplasm of colon (principal); Z86.0100 Personal history of colon polyps, unspecified; D12.0 Benign neoplasm of cecum; K64.0 First degree hemorrhoids | CPT/HCPCS: 45380 ==

== ENCOUNTER 2025-01-24 15:24 | Outpatient (AMB) | payer MEDICARE, SELFPAY ==
--- NOTE | 2025-01-24 15:45 | MHC.OFFVIS ---
Vital Signs 01/24/25 15:49 Height 5 ft 3 in Weight 145 lb 15.136 oz BMI 25.9 BP 140/80 H Blood Pressure Location Lt brachial Position Sitting Pulse 68 Pulse Source Monitor Intake Visit Reasons: 1 yr f/up Intake Note: 1 yr f/up Supervisor Plasma Required: No Accompanied by: Self / Same As Patient Allergies No Known Allergies Allergy (Verified 06/29/24 15:19) Medication List - Last Reconciled 01/24/25 by Eloy Villanueva MD alendronate (Fosamax) 70 mg PO QWEEK 4 weeks amlodipine 5 mg PO DAILY 90 days ascorbic acid (vitamin C) 500 mg PO DAILY atorvastatin 20 mg PO BEDTIME calcium carbonate (Calcium 600) 600 mg PO DAILY cholecalciferol (vitamin D3) 50 mcg PO DAILY 90 days psyllium husk (Daily Fiber) 0.4 grams PO BEDTIME sertraline 50 mg PO DAILY HPI Comments Details: Pleasant 68-year-old female here for follow-up. She has background history of hypertension. She was started on amlodipine with good control of blood pressure. She continues to have some off and on palpitations. She is denying chest pain or shortness of breath. On follow-up she continues to have some palpitations. We discussed about doing further workup but she is also due to see endocrinology for previous history of hyperthyroidism which was told to her was due to Graves disease. She is saying that she is due to see Endocrinology in a month and will be getting blood workup. Overall doing well and has no significant issues. 01/26/24: She is here for f/u. Occasional palpitations lasting for few seconds. No CP. Holter did not show any significant arrhythmia. 01/24/2025: She is here for follow-up. She has been doing well. Occasionally gets palpitations. Has been is sick and she has been under lot of stress. She is saying that she has not been taking her medications and was missing her amlodipine in particular and blood pressure is elevated. We discussed about medication compliance. [facility] Medical History Vitamin D deficiency Osteoporosis History of Graves' disease Tubulovillous adenoma Vitamin D deficiency Palpitations Hyperlipidemia Murmur HTN (hypertension) Graves disease Surgical History Hx of colonoscopy History of hernia surgery Hx of abdominal surgery Family History Father Hypertension Diabetes Mother COPD (chronic obstructive pulmonary disease) Social History [facility]: [facility] Alcohol intake: current Alcohol intake frequency: a few times a week Alcohol type: beer Patient Tobacco Use Status: Never used Tobacco e-Cigarette/Vaping Use: Never Used Second Hand Smoke Exposure: No service: No Current occupational status: retired Cognitive needs: No Hearing needs: No Vision needs: Yes Review of Systems Const Denies chills, Denies fatigue, Denies fever(s), Denies frequent falls, Denies weakness, Denies weight gain and Denies weight loss ENT Denies dizziness Card Denies chest pain, Denies leg edema, Denies lightheadedness, Denies palpitations, Denies dyspnea and Denies dyspnea on exertion Resp Denies cough, Denies dyspnea and Denies dyspnea on exertion GI Denies hematochezia Musc Denies abnormal gait, Denies muscle weakness, Denies numbness, Denies radiating pain into limb and Denies tingling Neuro Denies abnormal gait, Denies dizziness, Denies frequent falls, Denies numbness, Denies tingling and Denies weakness Endo Denies fatigue and Denies palpitations Physical Exam Vital Signs: Last Vital Signs Pulse 68 01/24/25 15:49 BP 140/80 H 01/24/25 15:49 BMI result Body Mass Index 25.9 GENERAL APPEARANCE: in no acute distress, pleasant. NECK: no carotid bruit, no jugular venous distention. SKIN: no suspicious lesions, warm and dry. HEART: Mid systolic murmur, regular rate and rhythm. LUNGS: clear to auscultation bilaterally. ABDOMEN: soft, nontender. EXTREMITIES: no edema. PERIPHERAL PULSES: equal. NEUROLOGIC: No gross deficits, AAO X 3 Office Procedures EKG Details: Sinus rhythm 68 beats per minute, normal axis, can not rule out anterior infarct, QTC 448 milliseconds. [id number], Complete Assessment & Plan Assessment & Plan (1) HTN (hypertension): Code(s): I10 - Essential (primary) hypertension Category: Medical (2) Graves disease: Comment: diagnosed 10 years ago Code(s): E05.00 - Thyrotoxicosis with diffuse goiter without thyrotoxic crisis or storm Category: Medical (3) Palpitations: Code(s): R00.2 - Palpitations Category: Medical Plan 69-year-old female who is here for follow-up. She has background history of Graves disease and palpitations. No significant arrhythmia found in the past. She occasionally gets some palpitations now. Blood pressure is elevated but she unfortunately has not be taking amlodipine because of 's illness. She is saying she was just do stress take anything. She will start taking medications. Overall clinically stable otherwise. She will follow up with us in 6 months. Thank you for allowing me to participate in the care of your patient. Please feel free to contact me if you have any questions. Coding Level of Care Code Est Pt Level 3 (51390) Diagnoses HTN (hypertension) I10 Graves disease E05.00 Palpitations R00.2 CPT Codes EKG - CPT: 61732-[id number], Complete ([id number])
[2025-01-24 15:49] VITALS: BP 140/80; PULSE 68; BMI 25.9
--- OUTSIDE RECORDS SUMMARY | 2025-01-24 18:26 | XMS_ITS ---
[facility] Care Team Organization Name Specialty Phone Email Start Date End Da te [facility] JEREMIE BAUTISTA [facility] 12/30/2021 10/11/19 24
== END 2025-01-24 16:17 | disposition home or self-care (01) ==
LOC: HO.HCS 15:25
PROVIDERS: PCP Nurse Practitioner Family; Visit Provider Internal Medicine Cardiovascular Disease
DX: I10 Essential (primary) hypertension (principal); E05.00 Thyrotoxicosis with diffuse goiter without thyrotoxic crisis or storm; R00.2 Palpitations
CPT/HCPCS: 93010; 99213

== ENCOUNTER → 2025-01-24 15:24 | Outpatient (BNVA) | payer MEDICARE, SELFPAY | PROVIDERS: PCP Nurse Practitioner Family; Visit Provider Internal Medicine Cardiovascular Disease | DX: I10 Essential (primary) hypertension (principal); R00.2 Palpitations; E05.00 Thyrotoxicosis with diffuse goiter without thyrotoxic crisis or storm | CPT/HCPCS: 93005; 99212 ==